=== PATIENT | male | born 1940 | race Caucasian/White ===

== ENCOUNTER 2019-01-26 11:30 | Inpatient (IN) ==
--- NOTE | 2019-01-26 12:45 | CT Scan Report ---
ABDOMEN AND PELVIS CT WITHOUT CONTRAST CT DOSE: 1033.77 mGycm HISTORY: Lower abdominal pain and cramping. anuria TECHNIQUE: Multiaxial CT images of the abdomen and pelvis were performed without contrast. A dose lo wering technique was utilized adhering to the principles of ALARA. COMPARISON STUDY: None. FINDINGS: The lung bases are clear. No pneumoperitoneum. No pneumatosis. No suspicious lytic or blast ic osseous lesions. Small hiatus hernia. Cholecystectomy. Hepatic steatosis. The unenhanced spleen, a drenal glands, and pancreas are unremarkable. No renal or ureteral stones. No hydronephrosis. No retr operitoneal lymphadenopathy. A 1.6 cm exophytic hypodense lesion within the lower pole of the left ki dney. This is technically indeterminate on this noncontrast study but favors a cyst. Prior prostatect jose. Multiple surgical clips at the resection site. This results in metallic artifact in near nondiag nostic evaluation of the bladder. There is a suprapubic catheter decompressing the bladder. Small lef t inguinal hernia containing a short segment of the proximal sigmoid colon. Focal bowel wall thickeni ng within the mid sigmoid colon with mild pericolonic fat stranding. This is consistent with an acute diverticulitis. No perforation or abscess identified at this time. No evidence for bowel obstruction . IMPRESSION: 1. Acute sigmoid diverticulitis. No perforation or abscess identified. 2. No bowel obstruction. 3. Small left inguinal hernia containing a short segment of the proximal sigmoid colon. 4. The bladder is not well visualized due to the metallic artifact from the prostatectomy clips. In a ddition, the bladder is decompressed by a suprapubic catheter. 5. Additional findings as described above. Electronically signed by: Garo Vale M.D. 01/26/2019 12:44 PM
[2019-01-26 12:59] LABS: Basophils # (auto) 0.01 K/uL (0-0.2); Basophils % (auto) 0.1 %; Eosinophils # (auto) 0.27 K/uL (0-0.5); Eosinophils % (auto) 3.1 %; Hematocrit (blood only) 36.7 % (42-52); Hemoglobin 12.4 g/dL (14.0-18.0); Immature Granulocytes # (auto) 0.05 K/uL (0.00-0.02); Immature Granulocytes % (auto) 0.6 %; Lymphocytes # (auto) 1.34 K/uL (1.2-3.4); Lymphocytes % (auto) 15.3 %; Mean Corpuscular Hemoglobin 26.6 pg (25-34); Mean Corpuscular Hgb Conc 33.8 g/dL (32-36); Mean Corpuscular Volume 78.6 fL (80-100); Mean Platelet Volume 9.5 fL (7.4-10.4); Monocytes # (auto) 0.62 K/uL (0.11-0.59); Monocytes % (auto) 7.1 %; Neutrophils # (auto) 6.45 K/uL (1.4-6.5); Neutrophils % (auto) 73.8 %; Platelet Count 205 K/uL (130-400); RDW Coefficient of Variation 15.5 % (11.5-14.5); RDW Standard Deviation 44.6 fL (36.4-46.3); Red Blood Count 4.67 M/uL (4.7-6.1); White Blood Count 8.74 K/uL (4.8-10.8)
[2019-01-26 13:10] LABS: Appearance Urine Clear (Clear); Bacteria Urine Automated 1+ (Negative); Bilirubin Urine Negative (Negative); Blood Urine Trace (Negative); Cast Urine Automated 0 /lpf (0-5); Color Urine Yellow; Epithelial Cell Urine Auto 20-30 /lpf (0-5); Glucose Urine UA Negative (Negative); Ketones Urine Negative (Negative); Leukocyte Esterase Urine 1+ (Negative); Nitrite Urine Negative (Negative); Protein Urine Negative (Negative); RBC Urine Automated 0-4 /hpf (0-4); Specific Gravity Urine 1.008 (1.000-1.030); Urobilinogen Urine Negative (Negative); pH Urine 6.5 (4.5-7.5)
[2019-01-26 13:17] LABS: BUN Creatinine Ratio 22.1 (10-20); Calcium 9.3 mg/dl (8.5-10.1); Est GFR (African American) 46.4; Est GFR (Non-African American) 40.1; Magnesium 1.8 mg/dl (1.8-2.4); Potassium 4.4 mmol/L (3.5-5.1)
[2019-01-26 13:27] LABS: Albumin Globulin Ratio 1.2 (0.9-2); Bilirubin,Total 0.5 mg/dl (0.2-1); Globulin 3.3 gm/dl (2.5-4.0); Thyroid Stimulating Hormone 1.23 uIu/ml (0.300-4.500); Total Protein 7.3 gm/dl (6.4-8.2)
[2019-01-26] MEDS ORDERED: ERTAPENEM SODIUM 1,000 MG in SODIUM CHLORIDE 0.9% 50 ML IV ONE (15:30)
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
[2019-01-26] MEDS ORDERED: SODIUM CHLORIDE 0.9% 1000ML 1,000 ML IV SCH (19:19)
[2019-01-26] MEDS ORDERED: ZOLPIDEM TARTRATE 5 MG TAB PO PRN (19:19)
[2019-01-26] MEDS ORDERED: ALUMINUM/MAGNESIUM SUSP 30 ML UDC PO PRN (19:19)
[2019-01-26] MEDS ORDERED: ONDANSETRON INJ 2 MG/ML 2 ML VIAL IV PRN (19:19)
[2019-01-26] MEDS ORDERED: MAGNESIUM HYDROXIDE SUSP 30 ML UDC PO PRN (19:19)
[2019-01-26] MEDS ORDERED: INSULIN LISPRO SLIDING SCALE SQ SCH (19:19)
[2019-01-26] MEDS ORDERED: POLYETHYLENE (MIRALAX) 17 GM PACK PO PRN (19:19)
[2019-01-26] MEDS ORDERED: ACETAMINOPHEN 325 MG TAB PO PRN (19:19)
[2019-01-26] MEDS ORDERED: PHARMACY GLYCEMIC MGMT CONSULT PRN (20:40)
[2019-01-26] MEDS ORDERED: DEXTROSE 50% 50 ML SYRINGE IV PRN (20:45)
[2019-01-26] MEDS ORDERED: GLUCAGON FOR INJ 1 MG VIAL IM PRN (20:45)
[2019-01-26] MEDS ORDERED: GLUCOSE 10 TABS/TUBE PO PRN (20:45)
[2019-01-26] MEDS ORDERED: CARBOHYDRATES FOR HYPOGLYCEMIA PO PRN (20:45)
[2019-01-26] MEDS ORDERED: GLUCOSE 40% GEL 15 GM TUBE PO PRN (20:45)
[2019-01-26] MEDS: HEPARIN SOD 5,000 UNIT/0.5 ML VIAL SQ SCH (21:30)
[2019-01-26] MEDS: PANTOprazole 40 MG TAB PO SCH (21:31)
[2019-01-26] MEDS: HYDROCODONE/ACETAMINOPHEN 7.5/325MG TAB PO PRN (21:42)
[2019-01-26] MEDS: INSULIN ASPART 100 UNITS/ML 3 ML PEN SC SCH (21:46)
[2019-01-27 06:45] LABS: Hematocrit (blood only) 36.1 % (42-52); Hemoglobin 11.8 g/dL (14.0-18.0); Mean Corpuscular Hemoglobin 25.6 pg (25-34); Mean Corpuscular Hgb Conc 32.7 g/dL (32-36); Mean Corpuscular Volume 78.3 fL (80-100); Platelet Count 178 K/uL (130-400); RDW Coefficient of Variation 15.3 % (11.5-14.5); RDW Standard Deviation 43.9 fL (36.4-46.3); Red Blood Count 4.61 M/uL (4.7-6.1); White Blood Count 5.52 K/uL (4.8-10.8)
[2019-01-27 06:46] LABS: Basophils # (auto) 0.02 K/uL (0-0.2); Basophils % (auto) 0.4 %; Eosinophils # (auto) 0.41 K/uL (0-0.5); Eosinophils % (auto) 7.4 %; Immature Granulocytes # (auto) 0.05 K/uL (0.00-0.02); Immature Granulocytes % (auto) 0.9 %; Lymphocytes # (auto) 1.14 K/uL (1.2-3.4); Lymphocytes % (auto) 20.7 %; Mean Platelet Volume 9.3 fL (7.4-10.4); Monocytes % (auto) 10.9 %; Neutrophils % (auto) 59.7 %
[2019-01-27 07:18] LABS: Albumin Level 3.4 gm/dl (3.4-5.0); BUN Creatinine Ratio 21.2 (10-20); Calcium 8.9 mg/dl (8.5-10.1); Creatinine Clr Calc Pharmacy 50.1 ml/min; Est GFR (Non-African American) 48.3; Potassium 3.9 mmol/L (3.5-5.1)
[2019-01-27 07:20] LABS: Bilirubin,Total 0.4 mg/dl (0.2-1); Globulin 3.4 gm/dl (2.5-4.0); Total Protein 6.8 gm/dl (6.4-8.2)
[2019-01-27 08:07] LABS: Estimated Average Glucose 160 mg/dl; Hemoglobin A1C 7.2 % (4.5-5.6)
[2019-01-27] MEDS: HEPARIN SOD 5,000 UNIT/0.5 ML VIAL SQ SCH ×2 (08:38→20:51)
[2019-01-27] MEDS: PANTOprazole 40 MG TAB PO SCH ×2 (08:38→20:51)
[2019-01-27] MEDS: INSULIN ASPART 100 UNITS/ML 3 ML PEN SC SCH ×4 (08:39→20:52)
[2019-01-27] MEDS: INSULIN GLARGINE SOLOSTAR 100 UNITS/ML 3 ML PEN SQ SCH (08:40)
[2019-01-27] MEDS: lisinopriL 20 MG TAB PO SCH (08:41)
[2019-01-27] MEDS: CHOLECALCIFEROL 1,000 UNITS TAB PO SCH (08:41)
[2019-01-27] MEDS: ATENOLOL 50 MG TABLET PO SCH (08:41)
[2019-01-27] MEDS: CYANOCOBALAMIN 500 MCG TABLET (VITAMIN B-12) PO SCH (08:41)
[2019-01-27] MEDS: AMLODIPINE BESYLATE 5 MG TAB PO SCH (08:41)
[2019-01-27] MEDS: hydroCHLOROthiazide 25 MG TAB PO SCH (08:42)
[2019-01-27] MEDS: DOCUSATE SODIUM 100 MG CAP PO SCH (08:42)
[2019-01-27] MEDS: HYDROCODONE/ACETAMINOPHEN 7.5/325MG TAB PO PRN ×2 (08:53→16:38)
[2019-01-27] MEDS ORDERED: INSULIN GLARGINE SOLOSTAR 100 UNITS/ML 3 ML PEN SQ SCH (09:00)
[2019-01-27] MEDS ORDERED: OMEGA-3 (PURIFIED FISH OIL) 1 GM CAP PO SCH (09:00)
--- NOTE | 2019-01-27 11:39 | Urology Progress Note ---
Date of Service January 27, 2019 Assessment & Plan (1) UTI (urinary tract infection): 78 YO male with indwelling SP tube, complex history, CAP. SP tube functioning appropriately. CT without acute findings. Remains on empiric antibiotics for acute diverticulitis/UTI. UOP improved with IVF. Continue antibiotics per primary team. Please contact our service if we can further assist during hospitalization. Subjective 78 YO male with indwelling SP tube, complex history, CAP. Patient was evaluated in our outpatient clinic yesterday and advised to report to ER for evaluation after complaints of low urine output x 2-3 days. A cystos copy was completed by Dr. Conway, confirming adequate position of SP tube. CT scan is reviewed and without acute findings +acute sigmoid diverticulitis. UOP has greatly improved with IVF. Remains on empiric antibiotics for diverticulitis and suspected UTI. Patient feeling well this morning. SP tube is not painful or bothersome. No fevers/chills. Intermittent nausea. Review of Systems Review of Systems: Per HPI. Physical Exam Physical Exam: NAD. Resp effort normal. No JVD. Abd nondistended. : SP tube in place, patent, draining clear yellow urine. A&Ox3, appropiate affect. Results & Data Vital Signs (Past 12 Hours) Vital Signs Temp Pulse Pulse Resp BP Pulse Ox 01/27/19 10:50 57 L 20 124/67 96 01/27/19 06:56 36.6 C 60 16 150/74 H 99 01/27/19 03:59 36.8 C 57 L 16 128/66 95 PG Care Time/CCT Total # of Minutes Spent Total Time Spent with Patient: Total time spent is greater than 50% in coordination of care (as documented) at patient's floor/unit and/or counseling patient:
--- NOTE | 2019-01-27 12:32 | Hospitalist Progress Note ---
Date of Service January 27, 2019 Assessment & Plan (1) Acute diverticulitis: CT a/p on 01/26 showed acute sigmoid diverticulitis with no perforation or abscess identified. - Continue ertapenem - Advance diet (2) UTI (urinary tract infection): Initially thought to have a UTI; however, the culture is polymicrobial and this is likely a contaminant or colonization. - No treatment (3) Diabetes mellitus: A1c was 7.2% this admission. - Glycemic control per pharmacy - Sugars under control today. (4) Malignant neoplasm of prostate: Patient is past radical prostatectomy and salvage XRT in 2010 status post Lupron July 1999 1215, status post RRP 2007. - Seen by urology on 01/27; no inpatient needs - Suprapubic Marinelli is draining well. (5) Hypertension: BP stable today. - Continue home meds (6) DVT prophylaxis: Heparin 5000 units Q12h Subjective Feeling fairly well today overall. No stomach pain. No other concerns. No fevers or chills overnight. Review of Systems Review of Systems: All systems reviewed & are unremarkable except as noted in HPI & below Physical Exam Constitutional: WD/WN, vitals as above Eyes: EOM intact bilaterally; no conjunctival abnormality ENMT: external ear and nose normal, oropharynx normal Neck: trachea midline, no thyromegaly normal visual inspection Respiratory: normal respiratory effort, lungs clear to auscultation no respiratory distress Cardiovascular: RRR, no murmur, no edema Gastrointestinal (Abdomen): Inspection/Auscultation: abdomen normal to inspection; abdomen not distended Musculoskeletal: no cyanosis or clubbing, extremities motor strength 5/5 Skin: no rashes, warm and dry Neurologic: moves all extremities and awake Psychiatric: Orientation: alert, oriented to person and cooperative Results & Data Vital Signs (Past 12 Hours) Vital Signs Temp Pulse Pulse Resp BP Pulse Ox 01/27/19 10:50 57 L 20 124/67 96 01/27/19 06:56 36.6 C 60 16 150/74 H 99 01/27/19 03:59 36.8 C 57 L 16 128/66 95 PG Care Time/CCT Total # of Minutes Spent Total Time Spent with Patient: Total time spent is greater than 50% in coordination of care (as documented) at patient's floor/unit and/or counseling patient:
--- NOTE | 2019-01-27 14:08 | Pharmacy Report ---
Glycemic Control Consultation - Date of Service January 27, 2019 - Scope Scope: Glycemic Pharmacist consulted by Dr Ramos on 01/26 for glycemic control and to write orders per [facility] inpatient glycemic control protocol - Objective Weight: 94.5 kg Accuchecks BSG (last 24hrs): 01/26/19 01/27/19 01/27/19 19:41 06:23 07:03 Glucose 115 H POC Glucose 96 132 H 01/27/19 10:54 Glucose POC Glucose 155 H Laboratory Data (last 24hrs): 01/27/19 06:23 Potassium 3.9 Carbon Dioxide 26 Anion Gap 9.0 Creatinine 1.38 Est Cr Clr Drug Dosing 50.1 HbA1c: Hemoglobin A1c 7.2 % (4.5-5.6) H 01/27/19 06:23 - Recent Pertinent Medications Outpatient Anti-diabetic Regimen: * Lantus 30 units qAM * Humalog 5-10 units qHS * A1c = 7.2 % 01/27/19 The patient is currently receiving: * Basal insulin: Lantus 30 units every 24 hours * Correctional Insulin: Novolog Correction per scale ACHS Goal Range: Low 110 mg/dL - High 140 mg/dL Correction Factor: 25 mg/dL/unit * Prandial insulin: Per carb ratio of 1 unit per 9 grams CHO consumed Risk Factors for Insulin Resistance: * Infection: Invanz for UTI * Diet: T2DM - Assessment & Plan Assessment & Plan: ASSESSMENT: * 78 y/o male admitted for UTI, with history of T2DM. Additional PMH includes prostate cancer, Morris esophagus, arthritis, HTN, hyperlipidemia and recurrent UTIs. * His outpatient regimen is heavily weighted on basal insulin so will split inpatient basal/bolus dosing to be more of a 50/50 split and prevent fasting hypoglycemia * BSGs have been well controlled thus far, ranging from 96-155 mg/dL PLAN FOR INPATIENT GLYCEMIC CONTROL: * Basal insulin - decrease to be closer to 50% of needs * Lantus 20 units SQ qAM * Bolus insulin - no change * NovoLog per scale ACHS or Q6hrs while NPO * Goal Range: Low 110 mg/dL - High 140 mg/dL * Correction Factor: 25 mg/dL/unit * Nutritional / Prandial insulin per carb ratio of 1 unit per 9 grams CHO consumed Discharge Recommendations: * A1c = 7.2% * Goal A1c < 8 % based on age and comorbidities: Less stringent A1C goals (such as less than 8%) may be appropriate for patients with a history of severe hypoglycemia, limited life expectancy, advanced microvascular or macrovascular complications, extensive comorbid conditions, or long-standing diabetes in whom the goal is difficult to achieve despite diabetes self-management education, appropriate glucose monitoring, and effective doses of multiple glucose-lowering agents including insulin. * No changes to outpatient regimen recommended, unless patient experiencing hypoglycemia at home Thank you.
[2019-01-27] MEDS ORDERED: ERTAPENEM SODIUM 1,000 MG in SODIUM CHLORIDE 0.9% 50 ML IV SCH (15:00)
[2019-01-28] MEDS: HYDROCODONE/ACETAMINOPHEN 7.5/325MG TAB PO PRN ×3 (00:32→20:35)
[2019-01-28] MEDS ORDERED: GABAPENTIN 300 MG CAP PO ONE (01:00)
[2019-01-28 07:30] LABS: Basophils # (auto) 0.02 K/uL (0-0.2); Basophils % (auto) 0.3 %; Eosinophils # (auto) 0.41 K/uL (0-0.5); Hematocrit (blood only) 37.9 % (42-52); Hemoglobin 12.6 g/dL (14.0-18.0); Immature Granulocytes # (auto) 0.03 K/uL (0.00-0.02); Immature Granulocytes % (auto) 0.4 %; Lymphocytes # (auto) 1.06 K/uL (1.2-3.4); Lymphocytes % (auto) 15.6 %; Mean Corpuscular Hgb Conc 33.2 g/dL (32-36); Mean Corpuscular Volume 78.3 fL (80-100); Mean Platelet Volume 9.8 fL (7.4-10.4); Monocytes # (auto) 0.64 K/uL (0.11-0.59); Monocytes % (auto) 9.4 %; Neutrophils # (auto) 4.65 K/uL (1.4-6.5); Neutrophils % (auto) 68.3 %; Platelet Count 208 K/uL (130-400); RDW Coefficient of Variation 15.2 % (11.5-14.5); RDW Standard Deviation 43.6 fL (36.4-46.3); Red Blood Count 4.84 M/uL (4.7-6.1); White Blood Count 6.81 K/uL (4.8-10.8)
[2019-01-28 07:59] LABS: BUN Creatinine Ratio 19.3 (10-20); Calcium 9.8 mg/dl (8.5-10.1); Creatinine Clr Calc Pharmacy 46.7 ml/min; Est GFR (African American) 51.4; Est GFR (Non-African American) 44.4; Potassium 4.1 mmol/L (3.5-5.1)
[2019-01-28] MEDS: lisinopriL 20 MG TAB PO SCH (08:12)
[2019-01-28] MEDS: hydroCHLOROthiazide 25 MG TAB PO SCH (08:12)
[2019-01-28] MEDS: AMLODIPINE BESYLATE 5 MG TAB PO SCH (08:13)
[2019-01-28] MEDS: DOCUSATE SODIUM 100 MG CAP PO SCH (08:14)
[2019-01-28] MEDS: CYANOCOBALAMIN 500 MCG TABLET (VITAMIN B-12) PO SCH (08:14)
[2019-01-28] MEDS: ATENOLOL 50 MG TABLET PO SCH (08:14)
[2019-01-28] MEDS: PANTOprazole 40 MG TAB PO SCH ×2 (08:14→20:17)
[2019-01-28] MEDS: CHOLECALCIFEROL 1,000 UNITS TAB PO SCH (08:14)
[2019-01-28] MEDS: INSULIN GLARGINE SOLOSTAR 100 UNITS/ML 3 ML PEN SQ SCH (08:15)
[2019-01-28] MEDS: INSULIN ASPART 100 UNITS/ML 3 ML PEN SC SCH ×4 (08:16→20:19)
[2019-01-28] MEDS: HEPARIN SOD 5,000 UNIT/0.5 ML VIAL SQ SCH ×2 (08:18→20:18)
--- NOTE | 2019-01-28 09:24 | Pharmacy Report ---
Pharmacy Glycemic Short Note 2 - Date of Service January 28, 2019 - Glycemic Short BSG Results (Last 24 hours): 01/27/19 01/27/19 01/27/19 10:54 16:34 20:20 Glucose POC Glucose 155 H 147 H 154 H 01/28/19 01/28/19 06:57 07:45 Glucose 160 H POC Glucose 154 H OUTPATIENT ANTIDIABETIC REGIMEN: * Lantus 30 units SQ AM * Humalog SSI ASSESSMENT: * 78 y/o male admitted for UTI, with history of T2DM. Additional PMH includes prostate cancer, Morris esophagus, arthritis, HTN, hyperlipidemia and recurrent UTIs. * His outpatient regimen is heavily weighted on basal insulin so will split inpatient basal/bolus dosing to be more of a 50/50 split and prevent fasting hypoglycemia * Decreased Basal insulin to 20 units Q24hrs and added a corresponding CF/CR * BSGs have been well controlled thus far, ranging from 132-154 mg/dL * No changes needed at this time PLAN FOR INPATIENT GLYCEMIC CONTROL: * Basal insulin * Lantus 20 units SQ AM * Bolus insulin * NovoLog per scale ACHS or Q6hrs while NPO * Goal Range: Low 110 mg/dL - High 140 mg/dL * Correction Factor: 25 mg/dL/unit * Nutritional / Prandial insulin per carb ratio of 1 unit per 9 grams CHO c onsumed Discharge Recommendations: * A1c = 7.2% * Goal A1c < 8 % based on age and comorbidities: Less stringent A1C goals (such as less than 8%) may be appropriate for patients with a history of severe hypoglycemia, limited life expectancy, advanced microvascular or macrovascular complications, extensive comorbid conditions, or long-standing diabetes in whom the goal is difficult to achieve despite diabetes self-management education, appropriate glucose monitoring, and effective doses of multiple glucose-lowering agents including insulin. * No changes to outpatient regimen recommended, unless patient experiencing hypoglycemia at home
--- NOTE | 2019-01-28 13:24 | Hospitalist Progress Note ---
Date of Service January 28, 2019 Assessment & Plan (1) Acute diverticulitis: CT a/p on 01/26 showed acute sigmoid diverticulitis with no perforation or abscess identified. - Initially on ertapenem -> Switched to clindamycin after consult with pharmacists. - As of 01/28, he had no abdominal pain, no fevers, chills. Feels fine. On normal diet. - Can follow up with surgery if needed. Daughter reports this is not his first episode of diverticulitis. (2) UTI (urinary tract infection): Initially thought to have a UTI; however, the culture is polymicrobial and this is likely a contaminant or colonization. - No treatment (3) Diabetes mellitus: A1c was 7.2% this admission. - Glycemic control per pharmacy - Sugars stable today. (4) Malignant neoplasm of prostate: Patient is past radical prostatectomy and salvage XRT in 2010 status post Lupron July 1999 1215, status post RRP 2007. - Seen by urology on 01/27; no inpatient needs - Suprapubic Marinelli is draining well. (5) Hypertension: BP stable today at ~150/80. - Continue home meds (6) DVT prophylaxis: Heparin 5000 units Q12h Subjective Feels pretty much fine. No major concerns. Review of Systems Review of Systems: All systems reviewed & are unremarkable except as noted in HPI & below Physical Exam Constitutional: WD/WN, vitals as above Eyes: EOM intact bilaterally; no conjunctival abnormality ENMT: external ear and nose normal, oropharynx normal Neck: trachea midline, no thyromegaly normal visual inspection Respiratory: normal respiratory effort, lungs clear to auscultation no respiratory distress Cardiovascular: RRR, no murmur, no edema Gastrointestinal (Abdomen): Inspection/Auscultation: abdomen normal to inspection; abdomen not distended Musculoskeletal: no cyanosis or clubbing, extremities motor strength 5/5 Skin: no rashes, warm and dry Neurologic: moves all extremities and awake Psychiatric: Orientation: alert, oriented to person and cooperative Results & Data Vital Signs (Past 12 Hours) Vital Signs Temp Pulse Resp BP Pulse Ox 01/28/19 08:24 36.6 C 56 L 24 148/80 H 88 L PG Care Time/CCT Total # of Minutes Spent Total Time Spent with Patient: Total time spent is greater than 50% in coordination of care (as documented) at patient's floor/unit and/or counseling patient:
[2019-01-28] MEDS: POLYETHYLENE (MIRALAX) 17 GM PACK PO SCH ×2 (13:54→20:15)
[2019-01-28] MEDS: GABAPENTIN 300 MG CAP PO SCH ×2 (13:54→20:17)
[2019-01-28] MEDS: CLINDAMYCIN HCL 150 MG CAP PO SCH ×2 (13:55→20:17)
[2019-01-29] MEDS: CLINDAMYCIN HCL 150 MG CAP PO SCH ×3 (01:41→11:59)
--- NOTE | 2019-01-29 08:59 | Pharmacy Report ---
Pharmacy Glycemic Short Note 2 - Date of Service January 29, 2019 - Glycemic Short BSG Results (Last 24 hours): 01/28/19 01/28/19 01/28/19 11:59 16:44 19:53 POC Glucose 136 H 115 H 156 H 01/29/19 07:41 POC Glucose 131 H OUTPATIENT ANTIDIABETIC REGIMEN: * Lantus 30 units SQ AM * Humalog SSI ASSESSMENT: * 78 y/o male admitted for UTI, with history of T2DM. Additional PMH includes prostate cancer, Morris esophagus, arthritis, HTN, hyperlipidemia and recurrent UTIs. * His outpatient regimen is heavily weighted on basal insulin, therefore, regimen adusted for inpatient use to more of an equal distribution basal/bolus dosing 50/50 split and prevent fasting hypoglycemia * Decreased Basal insulin to 20 units Q24hrs and added a corresponding CF/CR * BSGs have been well controlled thus far, ranging from 115-156 mg/dL * No changes needed at this time PLAN FOR INPATIENT GLYCEMIC CONTROL: * Basal insulin * Lantus 20 units SQ AM * Bolus insulin * NovoLog per scale ACHS or Q6hrs while NPO * Goal Range: Low 110 mg/dL - High 140 mg/dL * Correction Factor: 25 mg/dL/unit * Nutritional / Prandial insulin per carb ratio of 1 unit per 9 grams CHO consumed Discharge Recommendations: * A1c = 7.2% * Goal A1c < 8 % based on age and comorbidities: Less stringent A1C goals (such as less than 8%) may be appropriate for patients with a history of severe hypoglycemia, limited life expectancy, advanced microvascular or macrovascular complications, extensive comorbid conditions, or long-standing diabetes in whom the goal is difficult to achieve despite diabetes self-management education, appropriate glucose monitoring, and effective doses of multiple glucose-lowering agents including insulin. * No changes to outpatient regimen recommended, unless patient experiencing hypoglycemia at home
[2019-01-29] MEDS: AMLODIPINE BESYLATE 5 MG TAB PO SCH (09:01)
[2019-01-29] MEDS: GABAPENTIN 300 MG CAP PO SCH (09:02)
[2019-01-29] MEDS: lisinopriL 20 MG TAB PO SCH (09:03)
[2019-01-29] MEDS: HEPARIN SOD 5,000 UNIT/0.5 ML VIAL SQ SCH (09:03)
[2019-01-29] MEDS: ATENOLOL 50 MG TABLET PO SCH (09:04)
[2019-01-29] MEDS: CHOLECALCIFEROL 1,000 UNITS TAB PO SCH (09:04)
[2019-01-29] MEDS: hydroCHLOROthiazide 25 MG TAB PO SCH (09:05)
[2019-01-29] MEDS: CYANOCOBALAMIN 500 MCG TABLET (VITAMIN B-12) PO SCH (09:06)
[2019-01-29] MEDS: PANTOprazole 40 MG TAB PO SCH (09:06)
[2019-01-29] MEDS: INSULIN GLARGINE SOLOSTAR 100 UNITS/ML 3 ML PEN SQ SCH (09:08)
[2019-01-29] MEDS: INSULIN ASPART 100 UNITS/ML 3 ML PEN SC SCH (09:10)
[2019-01-29] MEDS: HYDROCODONE/ACETAMINOPHEN 7.5/325MG TAB PO PRN (09:17)
[2019-01-29] MEDS: DOCUSATE SODIUM 100 MG CAP PO SCH (09:19)
--- NOTE | 2019-01-29 10:50 | Discharge Summary ---
Date of Service January 29, 2019 Admission HPI Per Admitting Provider Patient is a 78 years old male with past medical history of of urinary retention, urinary incontinence, urethral stricture, malignant neoplasm of prostate, CKD stage III who was sent by his urologist to the emergency room with a concern that patient did not produce any urine overnight even though his suprapubic catheter was properly placed and there was no obstruction in the suprapubic catheter. After arrival to the emergency room patient catheter was working okay and nurse was able to get thousand 600 cc of urine. Labs are reviewed: WBC 8.74, hemoglobin 12.4, hematocrit 36.7, platelets 205, PT 11.1, INR 1.1, sodium 133, BUN 36, creatinine 1.61, GFR 40.1AST 11, ALT 16 TSH 1.230. Magnesium 1.8. Urine show mildly elevated leukocyte esterase and trace blood. There is some bacteria and viable cells are otherwise negative as well as nitrates. CT abdomen pelvis is significant for acute sigmoid diverticulitis. No perforation or abscess identified. No bowel obstruction. Small left inguinal hernia containing an short segment of a proximal sigmoid colon. The bladder is not well visualized due to the metallic artifact from the prostatectomy clips. In addition the bladder is decompressed by a suprapubic catheter. Decision was made to admit patient for urinary tract infection possible anuria and or urinary retention at PCU telemetry. Principal Diagnosis Diverticulitis Discharge Exam Constitutional WD/WN, vitals as above Eyes EOM intact bilaterally; no conjunctival abnormality ENMT external ear and nose normal, oropharynx normal Neck trachea midline, no thyromegaly normal visual inspection Respiratory normal respiratory effort, lungs clear to auscultation no respiratory distress Cardiovascular RRR, no murmur, no edema Gastrointestinal (Abdomen) Inspection/Auscultation: abdomen normal to inspection; abdomen not distended Musculoskeletal no cyanosis or clubbing, extremities motor strength 5/5 Skin no rashes, warm and dry Neurologic moves all extremities and awake Psychiatric Orientation: alert, oriented to person and cooperative Discharge Data Allergies Allergy/AdvReac Type Severity Reaction Status Date / Time ciprofloxacin [From Cipro] Allergy Intermediate hives Verified 01/26/19 12:29 itching rofecoxib Allergy Intermediate Verified 01/26/19 12:29 atorvastatin [From Lipitor] Allergy Verified 01/26/19 12:29 cephalexin [From Keflex] Allergy Verified 01/26/19 12:29 chlorophyllin [From Panafil] Allergy Verified 01/26/19 12:29 erythromycin base Allergy Verified 01/26/19 12:29 ezetimibe [From Zetia] Allergy Verified 01/26/19 12:29 fluconazole [From Diflucan] Allergy Verified 01/26/19 12:29 garlic Allergy Verified 01/26/19 12:29 glipizide Allergy Hives Verified 01/26/19 12:29 hydrocodone Allergy Verified 01/26/19 12:29 milk Allergy Verified 01/26/19 12:29 ofloxacin [From Floxin] Allergy Verified 01/26/19 12:29 orange Allergy Verified 01/26/19 12:29 oxycodone Allergy Verified 01/26/19 12:29 papain [From Panafil] Allergy Verified 01/26/19 12:29 peanut Allergy Verified 01/26/19 12:29 Penicillins Allergy Verified 01/26/19 12:29 pravastatin [From Pravachol] Allergy Verified 01/26/19 12:29 Quinolones Allergy Verified 01/26/19 12:29 soy Allergy Verified 01/26/19 12:29 sulfamethoxazole Allergy Verified 01/26/19 12:29 [From Bactrim] trimethoprim [From Bactrim] Allergy Verified 01/26/19 12:29 urea [From Panafil] Allergy Verified 01/26/19 12:29 acetaminophen AdvReac Unknown Unknown Verified 01/26/19 12:29 [From Darvocet-N] propoxyphene AdvReac Unknown Unknown Verified 01/26/19 12:29 [From Darvocet-N] LACTOSE INTOLERANT Allergy Unknown THROAT Uncoded 01/26/19 12:29 SWELLS PCN,EES,FLOXIN,LLIPITOR,VIOXX,PRAVACHOL,DIFLUCAN Allergy Unknown Unknown Uncoded 01/26/19 12:29 ATORVASTATIN (Generic Allergy Y Uncoded 01/26/19 12:29 Allergy) ERYTHROMYCIN (Generic Allergy Y Uncoded 01/26/19 12:29 Allergy) Floxin Allergy Unknown Uncoded 01/26/19 12:29 FLUCONAZOLE (Generic Allergy) Allergy Y Uncoded 01/26/19 12:29 Garlic Allergy Unknown Uncoded 01/26/19 12:29 Milk Allergy Unknown Uncoded 01/26/19 12:29 Penicillins Allergy Unknown Uncoded 01/26/19 12:29 PRAVASTATIN SOD (Generic Allergy Y Uncoded 01/26/19 12:29 Allergy) Consultations 01/26/19 15:39 ED Decision to Admit Stat 01/26/19 19:19 Consult Urology Routine Ordered Studies 01/26/19 12:05 CT abd pelvis wo con Stat Hospital Course (1) Acute diverticulitis: CT a/p on 01/26 showed acute sigmoid diverticulitis with no perforation or abscess identified. - Initially on ertapenem -> Switched to clindamycin after consult with pharmacists. - While I do not like using clindamycin due to risk of C. diff, he has so many allergies that it was hard to find any other oral regimen. I did prescribe a probiotic to help prevent this. He will follow up with his PCP in a few day to be sure diarrhea is not an issue. - Can follow up with surgery if needed. Daughter reports this is not his first episode of diverticulitis. (2) UTI (urinary tract infection): Initially thought to have a UTI; however, the culture is polymicrobial and this is likely a contaminant or colonization. - No treatment (3) Diabetes mellitus: A1c was 7.2% this admission. - Glycemic control per pharmacy - Return to home regimen on discharge. (4) Malignant neoplasm of prostate: Patient is past radical prostatectomy and salvage XRT in 2010 status post Lupron July [id number], status post RRP 2007. - Seen by urology on 01/27; no inpatient needs - Suprapubic Marinelli is draining well. Light yellow urine. (5) Hypertension: BP stable today at ~150/80. - Continue home meds (6) DVT prophylaxis: Heparin 5000 units Q12h Total Time Total Time Spent Total Time Spent (In Minutes): 35 Discharge Plan Discharge Items Patient Disposition: Home - Self-Care Reason For Visit: ACUTE URINARY RETENTION Discharge Diagnosis: Mild acute diverticulitis Activity: Resume your previous activity Non-emergency contact: Primary Care Provider Call non-emergency contact if: you have any medication questions, your symptoms worsen and your temperature is above 101 Follow-up/Referrals: Stephanie Pate CRNP [Primary Care Provider] - 02/02/19 10:20 am (Please, follow up with Stephanie CARRINGTON on February 02 at 10:20 am. *If you need to change this appointment, call her office at [phone].) Diet: Low Fiber Addtl Attending Provider Instructions: Eat a low fiber diet until you are done with antibiotics and have seen your doctors. Please take the probiotic with the antibiotic to help avoid diarrhea. Please call your PCP (Ms. Pate) if you have diarrhea with your antibiotic, especially if it continues after you have finished the antibiotic. Low-fiber foods to consider eating if you have symptoms of diverticulitis include: * White rice, white bread, or white pasta, but avoid gluten-containing foods if youre intolerant * Dry, low-fiber cereals * Processed fruits such as applesauce or canned peaches * Cooked animal proteins such as fish, poultry, or eggs * [place] oil or other oils * Yellow squash, zucchini, or pumpkin: peeled, seeds removed, and cooked * Cooked spinach, beets, carrots, or asparagus * Potatoes with no skin * Fruit and vegetable juices Pending Studies at Discharge: No Stand-Alone Forms: My [facility] Medications and DC Order Prescriptions: New clindamycin HCl 300 mg capsule 600 mg PO TID Qty: 26 RF: 0 Provad 30 billion cell capsule 1 cap PO DAILY Qty: 7 RF: 0 Continued cyanocobalamin (vitamin B-12) [Vitamin B-12] 1,000 mcg Tablet 1,000 mcg PO QAM RF: 0 cholecalciferol (vitamin D3) [Vitamin D3] 1,000 unit Capsule 1,000 unit PO QAM RF: 0 omega 0-wpn-fky-fish oil [Fish Oil] 1,000 mg (120 mg-180 mg) Capsule 1 cap PO QAM RF: 0 hydrocodone-acetaminophen 7.5-325 mg tablet 1 tab PO TID PRN (Reason: Pain) RF: 0 atenolol 100 mg Tablet 100 mg PO QAM RF: 0 lisinopril 20 mg Tablet 20 mg PO QAM RF: 0 amlodipine 2.5 mg Tablet 2.5 mg PO QAM RF: 0 hydrochlorothiazide 12.5 mg Capsule 12.5 mg PO QAM RF: 0 docusate sodium [Stool Softener] 100 mg Capsule 200 mg PO QAM RF: 0 Humalog U-100 Insulin 100 unit/mL Cartridge 5 - 10 sliding scale dose SUBCUT USEASDIRECTD RF: 0 solifenacin [Vesicare] 10 mg Tablet 10 mg PO QAM RF: 0 Basaglar KwikPen U-100 Insulin 100 unit/mL (3 mL) Insulin Pen 30 unit SUBCUT QAM RF: 0 omeprazole 20 mg Tablet,Delayed Release (Dr/Ec) 20 mg PO BID RF: 0 Movantik 12.5 mg Tablet 12.5 mg PO QAM RF: 0 Discharge Orders: Discharge Order (Routine); Ordered 01/29/19 Ordered By: Papa Chong Admission Data Admit Date/Time: 01/26/19 17:53 Attending Provider: Papa Chong Admit Provider: Callum Ramos Primary Care Provider: Stephanie Pate Other Providers: Papa Chong ; Hospice,Family ; Callum Ramos ; Germán Chong I.
[2019-01-29] MEDS ORDERED: Nursing to Pharmacy Communication ONE (11:33)
[2019-01-29] MEDS ORDERED: CLINDAMYCIN HCL 150 MG CAP PO SCH ×3 (11:45→21:00)
== END 2019-01-29 12:53 | disposition home health service (06) | DRG 690 ==
LOC: ED 11:30 → SUATTDRO 17:53 → 2E 17:53 → 2N 01-27 13:42

== ENCOUNTER 2019-08-10 13:50 | Inpatient (IN) ==
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
[2019-08-10] MEDS ORDERED: HYDROCODONE/ACETAMINOPHEN 7.5/325MG TAB PO PRN (16:18)
[2019-08-10] MEDS ORDERED: POLYETHYLENE (MIRALAX) 17 GM PACK PO PRN (16:37)
[2019-08-10] MEDS ORDERED: ONDANSETRON INJ 2 MG/ML 2 ML VIAL IV PRN (16:37)
[2019-08-10] MEDS ORDERED: GLUCOSE 10 TABS/TUBE PO PRN (17:15)
[2019-08-10] MEDS ORDERED: GLUCAGON FOR INJ 1 MG VIAL IM PRN (17:15)
[2019-08-10] MEDS ORDERED: CARBOHYDRATES FOR HYPOGLYCEMIA PO PRN (17:15)
[2019-08-10] MEDS ORDERED: DEXTROSE 50% 50 ML SYRINGE IV PRN (17:15)
[2019-08-10] MEDS ORDERED: INSULIN ASPART 100 UNITS/ML 3 ML PEN SC SCH (17:15)
[2019-08-10] MEDS ORDERED: GLUCOSE 40% GEL 15 GM TUBE PO PRN (17:15)
[2019-08-10] MEDS: SODIUM CHLORIDE 0.9% 1000ML 1,000 ML IV SCH (17:23)
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
[2019-08-10] MEDS: DEXAMETHASONE SOD PHOSPHATE 4 MG in SYRINGE 0 ML IV SCH ×2 (17:59→22:54)
[2019-08-10] MEDS ORDERED: ACETAMINOPHEN 1,000 MG/100 ML VIAL IV PRN (18:24)
[2019-08-10] MEDS ORDERED: Nursing to Pharmacy Communication ONE (19:23)
[2019-08-10] MEDS: PANTOprazole 40 MG TAB PO SCH (20:07)
[2019-08-10] MEDS: INSULIN ASPART 100 UNITS/ML 3 ML PEN SC SCH (23:33)
[2019-08-10] MEDS: VESICARE: ORDER AWAITING ACTION SCH (23:35)
[2019-08-11] MEDS: SODIUM CHLORIDE 0.9% 1000ML 1,000 ML IV SCH (03:27)
[2019-08-11] MEDS: INSULIN ASPART 100 UNITS/ML 3 ML PEN SC SCH ×4 (06:05→20:42)
[2019-08-11] MEDS: DEXAMETHASONE SOD PHOSPHATE 4 MG in SYRINGE 0 ML IV SCH ×4 (06:06→23:38)
[2019-08-11 07:05] LABS: Hematocrit (blood only) 37.4 % (42-52); Hemoglobin 12.3 g/dL (14.0-18.0); Mean Corpuscular Hemoglobin 26.9 pg (25-34); Mean Corpuscular Hgb Conc 32.9 g/dL (32-36); Mean Corpuscular Volume 81.8 fL (80-100); Mean Platelet Volume 9.5 fL (7.4-10.4); Platelet Count 200 K/uL (130-400); RDW Standard Deviation 41.9 fL (36.4-46.3); Red Blood Count 4.57 M/uL (4.7-6.1); White Blood Count 11.22 K/uL (4.8-10.8)
[2019-08-11 07:34] LABS: Calcium 9.3 mg/dl (8.5-10.1); Est GFR (African American) 54.6; Est GFR (Non-African American) 47.1; Potassium 4.1 mmol/L (3.5-5.1)
[2019-08-11] MEDS: VESICARE: ORDER AWAITING ACTION SCH ×3 (08:48→23:38)
[2019-08-11] MEDS: DOCUSATE SODIUM 100 MG CAP PO SCH (08:54)
[2019-08-11] MEDS: AMLODIPINE BESYLATE 5 MG TAB PO SCH (08:55)
[2019-08-11] MEDS: ATENOLOL 50 MG TABLET PO SCH (08:55)
[2019-08-11] MEDS: PANTOprazole 40 MG TAB PO SCH ×2 (08:57→20:41)
[2019-08-11] MEDS: CHOLECALCIFEROL 1,000 UNITS 25 MCG TAB PO SCH (08:58)
[2019-08-11] MEDS: CYANOCOBALAMIN 500 MCG TABLET (VITAMIN B-12) PO SCH (08:58)
[2019-08-11] MEDS ORDERED: INSULIN GLARGINE SOLOSTAR 100 UNITS/ML 3 ML PEN SQ SCH ×2 (09:00→21:00)
[2019-08-11] MEDS ORDERED: PHARMACY GLYCEMIC MGMT CONSULT PRN (09:25)
[2019-08-11] MEDS ORDERED: Nursing to Pharmacy Communication ONE (09:44)
--- NOTE | 2019-08-11 10:49 | Hospitalist Progress Note ---
Date of Service August 11, 2019 Assessment & Plan (1) Throat swelling: Retropharyngeal edema secondary to suspected milk-protein allergy and consumption. No infection/abscess suspected. No antibiotics started here. Appreciate ENT review - plan is to continue steroids. Will switch to PO decadron tomorrow as long he continues to do well with his diet. 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 (3) Hypertension: Hold lisinopril given patient concern for angioedema although much more likely caused by him eating dairy as from history described this is a recurring theme. Continue amlodipine and atenolol and monitor for increased BP off lisinopril. HCTZ also on hold given stability of BP off this. (4) Diabetes mellitus: HbA1C pending Appreciate pharmacy glycemic control Basal insulin: Lantus 30 units SQ this morning, plus 15 units with lunch, Lantus this evening per scale (see MAR for details) Bolus insulin: NovoLog per scale ACHS or Q6hrs while NPO, goal 120-160, correction 20, carb ratio 1:7 Admission and Anticipated Discharge Date Admission Date: August 10, 2019 Plan for discharge tomorrow after PT/OT assessments, increase diet to soft and switch to PO steroids. Given initial concern for infection, patient age and comprehension of medical issues and lives alone I do not feel he should be discharged today. Anticipated date of discharge: 08/12/19 Subjective Patient reports no longer having sensation of foreign sensation in throat. No pain. Managed to eat clear liquid diet this morning without issue. He notes he lives alone. He reports allergy to milk but sometimes has it with ice and it goes down ok. Before this episode he notes eating rice pudding and cheese on pizza. He does not have an epipen at home. He thinks he was previously seen by an floor grinder but was just told the only allergy they can test is for penicillin. He also reports soy and peanut allergies but does not think he had these prior to the episode. He keeps concentrating on the lisinopril as the cause of this despite his food choices and eating dairy despite known allergy. He does recognize the role dairy may have played though and willing to go dairy free at least until he is seen by an floor grinder. The patient says he otherwise feels well. Uses artificial leg on right side but ambulates otherwise without assistance but also notes he hasn't really been up in 2 days. Patient was seen with practice representative and discussed at bedside. Patient will be provide with information sheet on foods to avoid. Review of Systems Review of Systems: All systems reviewed & are unremarkable except as noted in HPI & below Physical Exam Constitutional: WD/WN, vitals as above Eyes: + anicteric sclerae; normal pupil size ENMT: external ear and nose normal, oropharynx normal Mouth: no lip abnormality, no oropharynx abnormality and no tongue abnormality Neck: trachea midline, no thyromegaly Respiratory: normal respiratory effort, lungs clear to auscultation no stridor Cardiovascular: RRR, no murmur, no edema Musculoskeletal: no cyanosis or clubbing, extremities motor strength 5/5 Skin: no rashes, warm and dry Neurologic: moves all extremities and awake; not confused Psychiatric: A+Ox3, euthymic affect Results & Data Results & Data ([facility]) Vital Signs (Past 12 Hours) Vital Signs Temp Pulse Pulse Resp BP Pulse Ox 08/11/19 06:52 36.6 C 66 16 142/72 H 97 08/11/19 03:37 36.6 C 63 16 136/70 98 08/10/19 23:24 36.4 C L 64 16 128/71 94 08/10/19 22:58 65 PG Care Time/CCT Total # of Minutes Spent Total Time Spent with Patient: Total time spent is greater than 50% in coordination of care (as documented) at patient's floor/unit and/or counseling patient: Coding Level of Care Code 48885 Subseq Hosp Care Lvl 2 Diagnoses Throat swelling R22.1 Milk protein allergy Z91.011 Hypertension I10 Diabetes mellitus E11.9
[2019-08-11] MEDS ORDERED: INSULIN GLARGINE SOLOSTAR 100 UNITS/ML 3 ML PEN SQ ONE (12:15)
--- NOTE | 2019-08-11 15:28 | Pharmacy Report ---
Pharmacy Glycemic Short Note 2 - Date of Service August 11, 2019 - Glycemic Short BSG Results (Last 24 hours): 08/10/19 08/10/19 08/11/19 15:35 23:26 06:04 Glucose POC Glucose 187 H 256 H 227 H 08/11/19 08/11/19 06:44 11:26 Glucose 240 H POC Glucose 253 H OUTPATIENT ANTIDIABETIC REGIMEN: * Lantus 30 units SQ qAM * Humalog 5-10 units SQ qHS * HbA1c: 7.2% (01/27/19) -- updated A1c pending with AM labs ASSESSMENT: * Mr Jenkins is an 79yo diabetic male admitted with angioedema. * Patient is receiving IV dexamethasone q6h, which is expected to contribute to significant steroid-induced hyperglycemia. * Insulin regimen adjusted to provide more aggressive coverage during steroid therapy. Expect that insulin needs will decrease when steroids are weaned. * He is currently ordered a clear liquid diet. PLAN FOR INPATIENT GLYCEMIC CONTROL: * Hold outpatient oral diabetes medications * Basal insulin * Lantus 30 units SQ this morning, plus 15 units with lunch * Lantus this evening per scale (see MAR for details) * Bolus insulin * NovoLog per scale ACHS or Q6hrs while NPO * Goal Range: Low 120 mg/dL - High 160 mg/dL * Correction Factor: 20 mg/dL/unit * Nutritional / Prandial insulin per carb ratio of 1 unit per 7 grams CHO consumed PLAN FOR DISCHARGE: * pending updated A1c and insulin needs during hospitalization
[2019-08-12] MEDS: DEXAMETHASONE SOD PHOSPHATE 4 MG in SYRINGE 0 ML IV SCH (06:00)
[2019-08-12 06:35] LABS: BUN Creatinine Ratio 28.1 (10-20); Calcium 9.1 mg/dl (8.5-10.1); Creatinine Clr Calc Pharmacy 46.7 ml/min; Est GFR (African American) 54.1; Est GFR (Non-African American) 46.7
[2019-08-12 06:45] LABS: Estimated Average Glucose 171 mg/dl; Hemoglobin A1C 7.6 % (4.5-5.6)
[2019-08-12] MEDS ORDERED: predniSONE 20 MG TAB PO SCH (08:00)
[2019-08-12] MEDS: CYANOCOBALAMIN 500 MCG TABLET (VITAMIN B-12) PO SCH (08:02)
[2019-08-12] MEDS: AMLODIPINE BESYLATE 5 MG TAB PO SCH (08:02)
[2019-08-12] MEDS: CHOLECALCIFEROL 1,000 UNITS 25 MCG TAB PO SCH (08:03)
[2019-08-12] MEDS: PANTOprazole 40 MG TAB PO SCH (08:03)
[2019-08-12] MEDS: ATENOLOL 50 MG TABLET PO SCH (08:03)
[2019-08-12] MEDS: VESICARE: ORDER AWAITING ACTION SCH (08:03)
[2019-08-12] MEDS: DOCUSATE SODIUM 100 MG CAP PO SCH (08:03)
[2019-08-12] MEDS: INSULIN ASPART 100 UNITS/ML 3 ML PEN SC SCH ×2 (08:06→12:08)
--- NOTE | 2019-08-12 08:56 | Pharmacy Report ---
Pharmacy Glycemic Short Note 2 - Date of Service August 12, 2019 - Glycemic Short BSG Results (Last 24 hours): 08/11/19 08/11/19 08/11/19 11:26 16:21 20:03 Glucose POC Glucose 253 H 160 H 208 H 08/11/19 08/12/19 08/12/19 23:20 05:42 07:41 Glucose 186 H POC Glucose 156 H 206 H OUTPATIENT ANTIDIABETIC REGIMEN: * Lantus 30 units SQ qAM * Humalog 5-10 units SQ qHS * HbA1c: 7.2% (01/27/19) * HbA1c: 7.6% on 08/12/19 ASSESSMENT: * Mr Jenkins is an 79yo diabetic male admitted with angioedema. * Patient is initially ordered IV dexamethasone q6h, which is expected to contribute to significant steroid-induced hyperglycemia. However, steroids tapeed to Dexamethasone 4mg PO daily then to further taper. Hyperglycemia should resolve with step down in steroid dosing. * Insulin regimen initially adjusted to provide more aggressive coverage during steroid therapy. Will decrease now since steroids are weaned. PLAN FOR INPATIENT GLYCEMIC CONTROL: * Hold outpatient oral diabetes medications * Basal insulin * Lantus 30 units SQ this morning (outpatient dosing) * D/C Lantus in PM * Bolus insulin: no change - will loosen based on post-prandial BSGS * NovoLog per scale ACHS or Q6hrs while NPO * Goal Range: Low 120 mg/dL - High 160 mg/dL * Correction Factor: 20 mg/dL/unit * Nutritional / Prandial insulin per carb ratio of 1 unit per 7 grams CHO consumed PLAN FOR DISCHARGE: * A1c is in goal range for patient based on age/co-morbidities. No changes needed to outpatient regimen unless patient is experiencing hypoglycemia.
[2019-08-12] MEDS ORDERED: INSULIN GLARGINE SOLOSTAR 100 UNITS/ML 3 ML PEN SQ SCH (09:00)
[2019-08-12] MEDS ORDERED: dexAMETHasone 1 MG TAB PO SCH (09:00)
--- NOTE | 2019-08-12 13:56 | Discharge Summary ---
Date of Service August 12, 2019 Admission HPI Per Admitting Provider This is a 79 year old male with a history of type 2 diabetes, dyslipidemia, traumatic RBKA, hx prostate cancer with chronic indwelling catheter and anemia who presented to [facility] with feeling of swollen throat. Patient states he was eating breakfast this morning and began to feel crampy so he went to the bathroom. After passing stool he began to wipe up and had weird feeling in his throat. CT done at [place] showed likely retropharyngeal cellulitis with questionable early abscess formation and possibility of airway compromise. Patient was given decadron and vancomycin and transferred to [facility]. Patient states that over the last couple of weeks he has had increased difficulty swallowing. He denies any new meds or changes. Principal Diagnosis Retroperitoneal edema Milk-protein allergy Discharge Exam Constitutional WD/WN, vitals as above ENMT external ear and nose normal, oropharynx normal Mouth: no lip abnormality, no oropharynx abnormality and no tongue abnormality Neck trachea midline, no thyromegaly Respiratory normal respiratory effort, lungs clear to auscultation no stridor Cardiovascular RRR, no murmur, no edema Gastrointestinal (Abdomen) normal bowel sounds, soft, nontender, no hepatosplenomegaly Musculoskeletal no cyanosis or clubbing, extremities motor strength 5/5 Skin no rashes, warm and dry Neurologic moves all extremities and awake; not confused Psychiatric A+Ox3, euthymic affect Discharge Data Allergies Allergy/AdvReac Type Severity Reaction Status Date / Time ciprofloxacin [From Cipro] Allergy Intermediate hives Verified 06/27/19 14:25 itching rofecoxib Allergy Intermediate Unknown Verified 08/11/19 09:37 atorvastatin [From Lipitor] Allergy Unknown Verified 08/11/19 09:37 cephalexin [From Keflex] Allergy Unknown Verified 08/11/19 09:37 chlorophyllin [From Panafil] Allergy Unknown Verified 08/11/19 09:37 erythromycin base Allergy Unknown Verified 08/11/19 09:37 ezetimibe [From Zetia] Allergy Unknown Verified 08/11/19 09:37 fluconazole [From Diflucan] Allergy Unknown Verified 08/11/19 09:37 garlic Allergy Unknown Verified 08/11/19 09:37 glipizide Allergy Hives Verified 06/27/19 14:25 hydrocodone Allergy Unknown Verified 08/11/19 09:37 milk Allergy Unknown Verified 08/11/19 09:37 ofloxacin [From Floxin] Allergy Unknown Verified 08/11/19 09:37 orange Allergy Unknown Verified 08/11/19 09:37 oxycodone Allergy Unknown Verified 08/11/19 09:37 papain [From Panafil] Allergy Unknown Verified 08/11/19 09:37 peanut Allergy Unknown Verified 08/11/19 09:37 Penicillins Allergy Unknown Verified 08/11/19 09:37 pravastatin [From Pravachol] Allergy Unknown Verified 08/11/19 09:37 Quinolones Allergy Unknown Verified 08/11/19 09:37 soy Allergy Unknown Verified 08/11/19 09:37 sulfamethoxazole Allergy Unknown Verified 08/11/19 09:37 [From Bactrim] trimethoprim [From Bactrim] Allergy Unknown Verified 08/11/19 09:37 urea [From Panafil] Allergy Unknown Verified 08/11/19 09:37 acetaminophen AdvReac Unknown Unknown Verified 06/27/19 14:25 [From Darvocet-N] propoxyphene AdvReac Unknown Unknown Verified 06/27/19 14:25 [From Darvocet-N] Consultations 08/10/19 16:42 Consult Otolaryngology (Head and Neck) Routine Hospital Course (1) Throat swelling: João Moore is an 79 year old male admitted to [facility] from August 09 to 2019 due to foreign object sensation and retropharyngeal edema noted on CT scan at an outside hospital. Evaluation by ENT [Dr Bullock] revealed an open glottis. Suspected secondary to milk-protein allergy but given lisinopril use possibly increasing edema this was also held. He responded well to steroid treatment and is being discharged with a tapering dose of Decadron. Epipen also prescribed. He was recommended to avoid all dairy products to reduce the risk of this occurring again. He should follow up with firmware engineer appointment as below. (2) Milk protein allergy: (3) Hypertension: (4) Diabetes mellitus: Total Time Total Time Spent Total Time Spent (In Minutes): 40 Total Time Includes: Examination of the Patient, Discharge Planning and Medication Reconciliation Discharge Plan Discharge Items Patient Disposition: Home - Home Health Services Reason For Visit: Throat swelling, foreign object sensation Discharge Diagnosis: Retroperitoneal edema Milk-protein allergy Condition on Discharge: Good Activity: Resume your previous activity Non-emergency contact: Primary Care Provider Call non-emergency contact if: you have any medication questions and your symptoms worsen Follow-up/Referrals: Lexii Siddiqui MD [Physician] - 10/25/19 10:45 am (Please, follow up at [facility] Office with Dr. Siddiqui on WednesdayOctober 24 at 11:00 am (arrive 10:45 am). *The office is located in [address] of [facility], next to this hospital. If you need to change this appointment, call the office at [phone].) Stephanie Pate CRNP [Outside Practitioners] - Dietitian Info: Dairy-free, Peanut-free, Soy-free diet Diet: Other - See Diet Comment Diet Texture: Dental soft (bite-sized) Addtl Attending Provider Instructions: You were admitted to [facility] from August 09 to 2019 due to foreign object sensation and retropharyngeal edema noted on CT scan at an outside hospital. Evaluation by ear, nose, throat surgeon Dr Bullock revealed open glottis. This is likely due to a milk-protein allergy but given lisinopril use in addition possibly increasing edema this was also held. You responded well to steroid treatment for this and you will be treated with a tapering dose of Decadron as prescribed below. You were also prescribed an epipen to be used if you have ever have an allergic reaction which is affecting your breathing (anaphylaxis). If you use an Epipen you should go to the ER immediately or call an ambulance for further treatment as the effects can wear off. You have been set up with an firmware engineer for further management of you suspected milk-protein allergy. Please avoid all dairy products to reduce the risk of this occurring again. Kind regards, Dr Anatoly Tristan Pending Studies at Discharge: No Stand-Alone Forms: My [facility] Simplist, Smoking Cessation Medications and DC Order Prescriptions: New epinephrine [EpiPen 2-Chaz] 0.3 mg/0.3 mL auto-injector 0.3 mg IM Q3H PRN (Reason: anaphylaxis, throat swelling) Qty: 2 RF: 0 dexamethasone 1 mg Tablet See Rx Instructions .ROUTE .COMPLEX Qty: 12 RF: 0 Continued cyanocobalamin (vitamin B-12) [Vitamin B-12] 1,000 mcg Tablet 1,000 mcg PO QAM RF: 0 cholecalciferol (vitamin D3) [Vitamin D3] 1,000 unit Capsule 1,000 unit PO QAM RF: 0 omega 0-nra-dry-fish oil [Fish Oil] 1,000 mg (120 mg-180 mg) Capsule 1 cap PO QAM RF: 0 hydrocodone-acetaminophen 7.5-325 mg tablet 1 tab PO TID PRN (Reason: Pain) RF: 0 Provad 30 billion cell capsule 1 cap PO DAILY Qty: 7 RF: 0 atenolol 100 mg Tablet 100 mg PO QAM RF: 0 amlodipine 2.5 mg Tablet 2.5 mg PO QAM RF: 0 hydrochlorothiazide 12.5 mg Capsule 12.5 mg PO QAM RF: 0 docusate sodium [Stool Softener] 100 mg Capsule 200 mg PO QAM RF: 0 Humalog U-100 Insulin 100 unit/mL Cartridge 5 - 10 sliding scale dose SUBCUT USEASDIRECTD RF: 0 solifenacin [Vesicare] 10 mg Tablet 10 mg PO QAM RF: 0 Basaglar KwikPen U-100 Insulin 100 unit/mL (3 mL) Insulin Pen 30 unit SUBCUT QAM RF: 0 omeprazole 20 mg Tablet,Delayed Release (Dr/Ec) 20 mg PO BID RF: 0 Movantik 12.5 mg Tablet 12.5 mg PO QAM RF: 0 donepezil 5 mg tablet 5 mg PO DAILY RF: 0 Discontinued clindamycin HCl 300 mg capsule 600 mg PO TID Qty: 26 RF: 0 lisinopril 20 mg Tablet 20 mg PO QAM RF: 0 Discharge Orders: Discharge Order (Routine); Ordered 08/12/19 Ordered By: Anatoly Zurita/Other Patient Handouts: Using an Epinephrine Autoinjector, ED Allergic React Food, Epinephrine injection Auto-injector Admission Data Admit Date/Time: 08/10/19 16:39 Attending Provider: Anatoly Tristan Admit Provider: Anatoly Garcia Primary Care Provider: Flakita Mensah Other Providers: [facility],Home [facility] ; Laverne Bullock How Other Interventions: Discharge Summary Assessment (RN) Last Done: 08/12/19 14:00 DC Date/Time DO NOT enter until pt leaves facility: 08/12/19 14:54 Coding Level of Care Code D/C Day Management >30 mins Diagnoses Throat swelling R22.1 Milk protein allergy Z91.011 Hypertension I10 Diabetes mellitus E11.9
== END 2019-08-12 14:54 | disposition home health service (06) | DRG 916 ==
LOC: 2S → SUATTDRO 16:39 → 2N 08-11 10:48

== ENCOUNTER 2021-01-31 14:57 | Inpatient (IN) ==
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
[2021-01-31 22:18] LABS: Appearance Urine Cloudy (Clear); Bilirubin Urine Negative (Negative); Blood Urine 3+ (Negative); Color Urine Red; Glucose Urine UA Negative (Negative); Ketones Urine Negative (Negative); Leukocyte Esterase Urine Trace (Negative); Nitrite Urine Negative (Negative); Protein Urine 3+ (Negative); Urobilinogen Urine Negative (Negative)
[2021-01-31 22:20] LABS: Epithelial Cell Urine 0-5 /lpf (0-5)
[2021-01-31 22:21] LABS: Bacteria Urine Negative (Negative); RBC Urine >30 /hpf (0-4); WBC Urine 0-5 /hpf (0-5)
[2021-02-01 00:18] LABS: Basophils # (auto) 0.02 K/uL (0-0.2); Basophils % (auto) 0.2 %; Eosinophils # (auto) 0.24 K/uL (0-0.5); Eosinophils % (auto) 2.6 %; Hematocrit (blood only) 36.7 % (42-52); Hemoglobin 12.7 g/dL (14.0-18.0); Immature Granulocytes # (auto) 0.02 K/uL (0.00-0.02); Immature Granulocytes % (auto) 0.2 %; Lymphocytes % (auto) 17.6 %; Mean Corpuscular Hemoglobin 27.3 pg (25-34); Mean Corpuscular Hgb Conc 34.6 g/dL (32-36); Mean Corpuscular Volume 78.8 fL (80-100); Mean Platelet Volume 9.3 fL (7.4-10.4); Monocytes # (auto) 0.55 K/uL (0.11-0.59); Neutrophils # (auto) 6.68 K/uL (1.4-6.5); Neutrophils % (auto) 73.4 %; Platelet Count 224 K/uL (130-400); RDW Standard Deviation 39.6 fL (36.4-46.3); Red Blood Count 4.66 M/uL (4.7-6.1); White Blood Count 9.11 K/uL (4.8-10.8)
[2021-02-01 00:37] LABS: BUN Creatinine Ratio 18.4 (10-20); Calcium 8.8 mg/dl (8.5-10.1); Creatinine Clr Calc Pharmacy 43.7 ml/min; Est GFR (African American) 55.7 ml/min; Potassium 3.8 mmol/L (3.5-5.1)
[2021-02-01] MEDS ORDERED: DEXTROSE 50% 50 ML SYRINGE IV PRN (02:34)
[2021-02-01] MEDS ORDERED: GLUCAGON FOR INJ 1 MG VIAL SQ PRN (02:34)
[2021-02-01] MEDS ORDERED: CARBOHYDRATES FOR HYPOGLYCEMIA PO PRN (02:34)
[2021-02-01] MEDS ORDERED: DOCUSATE SODIUM/SENNA 50/8.6MG TAB PO PRN (02:34)
[2021-02-01] MEDS ORDERED: GLUCOSE 40% GEL 15 GM TUBE PO PRN (02:34)
[2021-02-01] MEDS ORDERED: GLUCOSE 10 TABS/TUBE PO PRN (02:34)
[2021-02-01] MEDS ORDERED: ACETAMINOPHEN 500 MG TAB PO PRN (02:42)
[2021-02-01] MEDS: HYDROCODONE/ACETAMOPHEN 5/325MG TAB PO SCH ×3 (03:13→21:12)
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
[2021-02-01 07:38] LABS: Basophils # (auto) 0.02 K/uL (0-0.2); Basophils % (auto) 0.3 %; Eosinophils # (auto) 0.21 K/uL (0-0.5); Eosinophils % (auto) 2.9 %; Hematocrit (blood only) 32.9 % (42-52); Hemoglobin 11.2 g/dL (14.0-18.0); Immature Granulocytes # (auto) 0.04 K/uL (0.00-0.02); Immature Granulocytes % (auto) 0.6 %; Lymphocytes # (auto) 1.47 K/uL (1.2-3.4); Lymphocytes % (auto) 20.2 %; Mean Corpuscular Hemoglobin 26.7 pg (25-34); Mean Corpuscular Volume 78.5 fL (80-100); Mean Platelet Volume 9.1 fL (7.4-10.4); Monocytes # (auto) 0.56 K/uL (0.11-0.59); Monocytes % (auto) 7.7 %; Neutrophils # (auto) 4.97 K/uL (1.4-6.5); Neutrophils % (auto) 68.3 %; Platelet Count 196 K/uL (130-400); RDW Standard Deviation 39.7 fL (36.4-46.3); Red Blood Count 4.19 M/uL (4.7-6.1); White Blood Count 7.27 K/uL (4.8-10.8)
[2021-02-01 08:04] LABS: Estimated Average Glucose 163 mg/dl; Hemoglobin A1C 7.3 % (4.5-5.6)
[2021-02-01] MEDS: VESICARE~ORDER AWAITING ACTION SCH ×3 (08:27→23:54)
[2021-02-01] MEDS: ONDANSETRON INJ 2 MG/ML 2 ML VIAL IV PRN (08:44)
[2021-02-01] MEDS: amLODIPine BESYLATE 5 MG TAB PO SCH (08:45)
[2021-02-01] MEDS: hydroCHLOROthiazide 25 MG TAB PO SCH (08:45)
[2021-02-01] MEDS: FAMOTIDINE 40 MG TABLET PO SCH (08:46)
[2021-02-01] MEDS: GABAPENTIN 300 MG CAP PO SCH ×2 (08:46→21:12)
[2021-02-01] MEDS: ATENOLOL 50 MG TABLET PO SCH (08:46)
[2021-02-01] MEDS: NYSTATIN CR 15 GM TUBE EXT SCH ×2 (08:47→21:13)
[2021-02-01] MEDS: INSULIN ASPART 100 UNITS/ML 3 ML PEN SC SCH ×4 (09:25→21:42)
[2021-02-01] MEDS: INSULIN GLARGINE SOLOSTAR 100 UNITS/ML 3 ML PEN SQ SCH (09:26)
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
[2021-02-01] MEDS ORDERED: SODIUM CHLORIDE 0.9% 1000ML 1,000 ML IV SCH (11:15)
[2021-02-01] MEDS ORDERED: diphenhydrAMINE 50 MG/ML VIAL IV PRN (12:01)
[2021-02-01 12:48] LABS: Appearance Urine Turbid (Clear); Bacteria Urine Automated 1+ (Negative); Bilirubin Urine Negative (Negative); Blood Urine 3+ (Negative); Color Urine Yellow; Epithelial Cell Urine Auto >30 /lpf (0-5); Glucose Urine UA Negative (Negative); Ketones Urine Negative (Negative); Leukocyte Esterase Urine 3+ (Negative); Nitrite Urine Negative (Negative); Protein Urine 2+ (Negative); Urobilinogen Urine Negative (Negative); WBC Urine Automated >30 /hpf (0-5)
[2021-02-01 12:50] LABS: Basophils # (auto) 0.01 K/uL (0-0.2); Basophils % (auto) 0.1 %; Eosinophils # (auto) 0.11 K/uL (0-0.5); Eosinophils % (auto) 1.5 %; Hematocrit (blood only) 33.2 % (42-52); Hemoglobin 11.1 g/dL (14.0-18.0); Immature Granulocytes # (auto) 0.03 K/uL (0.00-0.02); Immature Granulocytes % (auto) 0.4 %; Lymphocytes # (auto) 1.14 K/uL (1.2-3.4); Lymphocytes % (auto) 15.4 %; Mean Corpuscular Hemoglobin 26.4 pg (25-34); Mean Corpuscular Hgb Conc 33.4 g/dL (32-36); Mean Corpuscular Volume 78.9 fL (80-100); Mean Platelet Volume 8.7 fL (7.4-10.4); Monocytes # (auto) 0.47 K/uL (0.11-0.59); Monocytes % (auto) 6.4 %; Neutrophils # (auto) 5.62 K/uL (1.4-6.5); Neutrophils % (auto) 76.2 %; Platelet Count 185 K/uL (130-400); RDW Coefficient of Variation 13.7 % (11.5-14.5); Red Blood Count 4.21 M/uL (4.7-6.1); White Blood Count 7.38 K/uL (4.8-10.8)
[2021-02-01] MEDS ORDERED: levoFLOXacin/D5W 500 MG/100 ML BAG IV SCH (13:00)
[2021-02-01 13:05] LABS: RBC Urine Automated >30 /hpf (0-4)
[2021-02-01 13:07] LABS: Cast Urine Automated 0 /lpf (0-5)
[2021-02-01] MEDS ORDERED: bisacodyL 5 MG TABEC PO PRN (13:14)
[2021-02-01 13:17] LABS: Thyroid Stimulating Hormone 0.637 uIu/ml (0.300-4.500)
--- NOTE | 2021-02-01 18:04 | History & Physical Bridge Note ---
Date of Service February 01, 2021 History & Physical Bridge Note I have examined the patient, reviewed the History & Physical and in the interval since the performance of the History & Physical I have noted the following changes of clinical significance: no changes noted Patient seen early this afternoon. Doing well. Pain controlled. No further bleeding. Seen by Urology this morning -- suspect hematuria 2nd to traumatic catheter exchange. --> bedside irrigation with 5cc old clot and urine cleared. CBI clamped to evaluate urine throughout day. Repeat urine sent --> pending. Given 1x dose of Levaquin (hx pseudomonas sensitive to such) for manipulation/irrigation of catheter (on allergies, but hx hives, no specific issues pt notes. Benadryl available prn and discussed with patient to alert if any reaction) If cx grows, possible hematuria 2d to infection but would hold off on further abx --> continue to monitor cx If urine remains relatively clear overnight and patient stable, possible d/c tomorrow. Urology to see in AM. Cr stable 1.37 Hgb on admit 12.7 Hgb 11.2 this morning --> 11.1 this afternoon on repeat and stable. MCV noted to be 78.9 --- will obtain iron studies. caution with PO given issues with constipation Last c-scope 2 years ago, several polyps removed, felt to be benign. Admits to BRBPR on toilet paper from hemorrhoids but no melena or dark/tarry stools. Patient notes chronic issues with constipation and requesting stool softener/laxative. On Movantik TRANSCRIPTION but agrees to Dulcolax/senna. Continue to monitor overnight with possible dc in AM
[2021-02-01] MEDS: DONEPEZIL HCL 5 MG TAB PO SCH (21:12)
[2021-02-02 08:50] LABS: Basophils # (auto) 0.01 K/uL (0-0.2); Basophils % (auto) 0.1 %; Eosinophils # (auto) 0.12 K/uL (0-0.5); Eosinophils % (auto) 1.4 %; Hematocrit (blood only) 34.8 % (42-52); Hemoglobin 11.8 g/dL (14.0-18.0); Immature Granulocytes # (auto) 0.03 K/uL (0.00-0.02); Immature Granulocytes % (auto) 0.3 %; Lymphocytes # (auto) 0.66 K/uL (1.2-3.4); Lymphocytes % (auto) 7.7 %; Mean Corpuscular Hemoglobin 27.1 pg (25-34); Mean Corpuscular Hgb Conc 33.9 g/dL (32-36); Mean Corpuscular Volume 79.8 fL (80-100); Mean Platelet Volume 9.1 fL (7.4-10.4); Monocytes # (auto) 0.89 K/uL (0.11-0.59); Monocytes % (auto) 10.4 %; Neutrophils # (auto) 6.87 K/uL (1.4-6.5); Neutrophils % (auto) 80.1 %; Platelet Count 175 K/uL (130-400); RDW Coefficient of Variation 13.7 % (11.5-14.5); RDW Standard Deviation 39.7 fL (36.4-46.3); Red Blood Count 4.36 M/uL (4.7-6.1); White Blood Count 8.58 K/uL (4.8-10.8)
[2021-02-02 09:10] LABS: BUN Creatinine Ratio 15.4 (10-20); Calcium 8.6 mg/dl (8.5-10.1); Creatinine Clr Calc Pharmacy 49.8 ml/min; Est GFR (African American) 56.2 ml/min; Est GFR (Non-African American) 48.5 ml/min
--- NOTE | 2021-02-02 09:17 | Hospitalist Progress Note ---
Date of Service February 02, 2021 Assessment & Plan (1) Hematuria: Plan: 80yo male with suprapubic catheter presenting with gross hematuria with clot passage, blocked catheter requiring flushing and initiation of CBI. CBI now clamped. Urology consulted -- suspect hematuria 2nd to traumatic catheter exchange however could be 2nd infection --> bedside irrigation with 5cc old clot and urine cleared. CBI clamped to evaluate urine throughout day. Hgb dropped to 11.1--> improved to 11.8 on repeat and urine remains clear Given Levaquin 500mg IV 02/01 for catheter manipulation however discussed with pharmacy and will order 750mg IV for tonight and next dose due 48 hour after given renal impairment to complete 3 doses as discussed with Urology given repeat urine cx looked infected +bacteria. They will sign off and arrange outpt f/u and hammond exchange. Cr stable 1.36 Given risk factors and discussion with patient, would like to wait for final cx/sensitivities given multiple drug allergies and has been tolerating Levaquin (Hives with Cipro and Benadryl available prn) Urine cx preliminary gram negative bacilli x 2 --> follow (2) Diabetes mellitus: Plan: Chronic. Last A1C=7.8 in 05/2020 --> repeat 7.3 Lantus 30u QAM, ISS while inpatient BSGs acceptable Continue to monitor (3) Hypertension: Plan: Chronic. Blood pressure controlled Continue amlodipine 2.5mg, atenolol 100mg daily, HCTZ 12.5mg daily monitor (4) Constipation: Plan: Chronic issue, on Movantik but states not effective Working on bowel regimen --> mag citrate today as had been effective in the past MCV noted to be 78.9 --- will obtain iron studies. caution with PO given issues with constipation Last c-scope 2 years ago by his report but appears this was done Feb [address] Thorpe, several polyps removed, felt to be benign. Admits to BRBPR on toilet paper from hemorrhoids but no melena or dark/tarry stools. 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 I agree w/ the corley components of her documentation. Anatoly Garcia MD Subjective Patient evaluated this morning. Feeling better. Tolerated Levaquin without issue -- no hives. Will continued. Discussed Benadryl available if needed. Encouraged he already received this yesterday and has not had any issues. Discussed keeping overnight to monitor cultures to ensure sensitivities given risk factors and limited choices given allergy list. No fever, chills, chest pain, shortness of breath. Passing gas but no BM. Will order further bowel regimen. Questions/concerns addressed at this time. Review of Systems Review of Systems: All systems reviewed & are unremarkable except as noted in HPI & below Physical Exam Physical Exam: General: patient resting comfortably, NAD, non-toxic in appearance, AA&O Skin: warm, dry, intact, no rashes or lesions HEENT: NC/AT, PERRL, EOMI, anicteric sclera, conjunctiva without injection, external ear normal to inspection and nontender, nares patent, moist mucus membranes, dentition intact, no oropharyngeal lesions, neck supple, trachea midline, no LAD, no thyromegaly, no JVD Heart: +S1/S2, regular, no m/r/g Lungs: equal air entry bilaterally, no rales/rhonchi/wheezes Abd: +BS, soft, NT/ND, no masses/organomegaly/ascites Suprapubic catheter in place with clear urine draining in bag, no clots Ext: s/p right BKA, extremities warm, 2+ pulses, no clubbing/cyanosis or edema Neuro: nonfocal, patient AA&O x 4, speech intact, no facial droop, moving all extremities on command with equal strength 5/5 Results & Data Results & Data ([facility]) Vital Signs (Past 12 Hours) Vital Signs Temp Pulse Pulse Resp BP Pulse Ox 02/02/21 07:38 36.9 C 62 18 117/65 96 02/02/21 00:07 36.6 C 58 L 18 137/71 96 Laboratory Results 02/02/21 02/02/21 02/02/21 Range/Units 08:27 08:27 08:17 WBC 8.58 (4.8-10.8) K/uL RBC 4.36 L (4.7-6.1) M/uL Hgb 11.8 L (14.0-18.0) g/dL Hct 34.8 L (42-52) % MCV 79.8 L (80-100) fL MCH 27.1 (25-34) pg MCHC 33.9 (32-36) g/dL RDW Std Deviation 39.7 (36.4-46.3) fL RDW Coeff of Lili 13.7 (11.5-14.5) % Plt Count 175 (130-400) K/uL MPV 9.1 (7.4-10.4) fL Immature Gran % (Auto) 0.3 % Neut % (Auto) 80.1 % Lymph % (Auto) 7.7 % Woodruff % (Auto) 10.4 % Eos % (Auto) 1.4 % Baso % (Auto) 0.1 % Neut # (Auto) 6.87 H (1.4-6.5) K/uL Lymph # (Auto) 0.66 L (1.2-3.4) K/uL Woodruff # (Auto) 0.89 H (0.11-0.59) K/uL Eos # (Auto) 0.12 (0-0.5) K/uL Baso # (Auto) 0.01 (0-0.2) K/uL Immature Gran # (Auto) 0.03 H (0.00-0.02) K/uL Sodium 130 L (136-145) mmol/L Potassium 4.0 (3.5-5.1) mmol/L Chloride 96 L (98-107) mmol/L Carbon Dioxide 28 (21-32) mmol/L Anion Gap 6.0 (3-11) BUN 21 H (7-18) mg/dl Creatinine 1.36 (0.6-1.4) mg/dl Est Cr Clr Drug Dosing 49.8 ml/min Est GFR ( Amer) 56.2 ml/min Est GFR (Non-Af Amer) 48.5 ml/min BUN/Creatinine Ratio 15.4 (10-20) Glucose 165 H (70-99) mg/dl POC Glucose 168 H (70-99) mg/dl Calcium 8.6 (8.5-10.1) mg/dl Iron (35-175) mcg/dl TIBC (250-450) mcg/dl Transferrin (200-360) mg/dl Transferrin % Sat (20-50) % Ferritin (8-388) ng/ml TSH (0.300-4.500) uIu/ml Urine Color Urine Appearance (Clear) Urine pH (4.5-7.5) Ur Specific Brew[place] (1.000-1.030) Urine Protein (Negative) Urine Glucose (UA) (Negative) Urine Ketones (Negative) Urine Blood (Negative) Urine Nitrite (Negative) Urine Bilirubin (Negative) Urine Urobilinogen (Negative) Ur Leukocyte Esterase (Negative) Urine WBC (Auto) (0-5) /hpf Urine RBC (Auto) (0-4) /hpf U Hyaline Cast (Auto) (0-5) /lpf U Epithel Cells (Auto) (0-5) /lpf Urine Bacteria (Auto) (Negative) Urine Yeast 02/01/21 02/01/21 02/01/21 Range/Units 20:28 17:11 12:39 WBC (4.8-10.8) K/uL RBC (4.7-6.1) M/uL Hgb (14.0-18.0) g/dL Hct (42-52) % MCV (80-100) fL MCH (25-34) pg MCHC (32-36) g/dL RDW Std Deviation (36.4-46.3) fL RDW Coeff of Lili (11.5-14.5) % Plt Count (130-400) K/uL MPV (7.4-10.4) fL Immature Gran % (Auto) % Neut % (Auto) % Lymph % (Auto) % Woodruff % (Auto) % Eos % (Auto) % Baso % (Auto) % Neut # (Auto) (1.4-6.5) K/uL Lymph # (Auto) (1.2-3.4) K/uL Woodruff # (Auto) (0.11-0.59) K/uL Eos # (Auto) (0-0.5) K/uL Baso # (Auto) (0-0.2) K/uL Immature Gran # (Auto) (0.00-0.02) K/uL Sodium (136-145) mmol/L Potassium (3.5-5.1) mmol/L Chloride (98-107) mmol/L Carbon Dioxide (21-32) mmol/L Anion Gap (3-11) BUN (7-18) mg/dl Creatinine (0.6-1.4) mg/dl Est Cr Clr Drug Dosing ml/min Est GFR ( Amer) ml/min Est GFR (Non-Af Amer) ml/min BUN/Creatinine Ratio (10-20) Glucose (70-99) mg/dl POC Glucose 131 H 127 H (70-99) mg/dl Calcium (8.5-10.1) mg/dl Iron 47 (35-175) mcg/dl TIBC 213 L (250-450) mcg/dl Transferrin 167 L (200-360) mg/dl Transferrin % Sat 20 (20-50) % Ferritin 273.0 (8-388) ng/ml TSH 0.637 (0.300-4.500) uIu/ml Urine Color Urine Appearance (Clear) Urine pH (4.5-7.5) Ur Specific Brew[place] (1.000-1.030) Urine Protein (Negative) Urine Glucose (UA) (Negative) Urine Ketones (Negative) Urine Blood (Negative) Urine Nitrite (Negative) Urine Bilirubin (Negative) Urine Urobilinogen (Negative) Ur Leukocyte Esterase (Negative) Urine WBC (Auto) (0-5) /hpf Urine RBC (Auto) (0-4) /hpf U Hyaline Cast (Auto) (0-5) /lpf U Epithel Cells (Auto) (0-5) /lpf Urine Bacteria (Auto) (Negative) Urine Yeast 02/01/21 02/01/21 02/01/21 Range/Units 12:39 12:32 12:11 WBC 7.38 (4.8-10.8) K/uL RBC 4.21 L (4.7-6.1) M/uL Hgb 11.1 L (14.0-18.0) g/dL Hct 33.2 L (42-52) % MCV 78.9 L (80-100) fL MCH 26.4 (25-34) pg MCHC 33.4 (32-36) g/dL RDW Std Deviation 39.0 (36.4-46.3) fL RDW Coeff of Lili 13.7 (11.5-14.5) % Plt Count 185 (130-400) K/uL MPV 8.7 (7.4-10.4) fL Immature Gran % (Auto) 0.4 % Neut % (Auto) 76.2 % Lymph % (Auto) 15.4 % Woodruff % (Auto) 6.4 % Eos % (Auto) 1.5 % Baso % (Auto) 0.1 % Neut # (Auto) 5.62 (1.4-6.5) K/uL Lymph # (Auto) 1.14 L (1.2-3.4) K/uL Woodruff # (Auto) 0.47 (0.11-0.59) K/uL Eos # (Auto) 0.11 (0-0.5) K/uL Baso # (Auto) 0.01 (0-0.2) K/uL Immature Gran # (Auto) 0.03 H (0.00-0.02) K/uL Sodium (136-145) mmol/L Potassium (3.5-5.1) mmol/L Chloride (98-107) mmol/L Carbon Dioxide (21-32) mmol/L Anion Gap (3-11) BUN (7-18) mg/dl Creatinine (0.6-1.4) mg/dl Est Cr Clr Drug Dosing ml/min Est GFR ( Amer) ml/min Est GFR (Non-Af Amer) ml/min BUN/Creatinine Ratio (10-20) Glucose (70-99) mg/dl POC Glucose 174 H (70-99) mg/dl Calcium (8.5-10.1) mg/dl Iron (35-175) mcg/dl TIBC (250-450) mcg/dl Transferrin (200-360) mg/dl Transferrin % Sat (20-50) % Ferritin (8-388) ng/ml TSH (0.300-4.500) uIu/ml Urine Color Yellow Urine Appearance Turbid A (Clear) Urine pH 5.0 (4.5-7.5) Ur Specific Brewton 1.010 (1.000-1.030) Urine Protein 2+ H (Negative) Urine Glucose (UA) Negative (Negative) Urine Ketones Negative (Negative) Urine Blood 3+ H (Negative) Urine Nitrite Negative (Negative) Urine Bilirubin Negative (Negative) Urine Urobilinogen Negative (Negative) Ur Leukocyte Esterase 3+ H (Negative) Urine WBC (Auto) >30 H (0-5) /hpf Urine RBC (Auto) >30 H (0-4) /hpf U Hyaline Cast (Auto) 0 (0-5) /lpf U Epithel Cells (Auto) >30 H (0-5) /lpf Urine Bacteria (Auto) 1+ H (Negative) Urine Yeast Not Reportable PG Care Time/CCT Total # of Minutes Spent Total Time Spent with Patient: Total time spent is greater than 50% in coordination of care (as documented) at patient's floor/unit and/or counseling patient: Coding Level of Care Code 61534 Subseq Hosp Care Lvl 3 Diagnoses Hematuria R31.0 Hematuria type: gross Diabetes mellitus E11.9 Hypertension I10 Constipation K59.00 Morris esophagus K22.70 (1) Hematuria Hematuria type: gross Qualified Code(s): R31.0 - Gross hematuria
[2021-02-02] MEDS ORDERED: bisacodyL 5 MG TABEC PO ONE (09:30)
[2021-02-02] MEDS: INSULIN ASPART 100 UNITS/ML 3 ML PEN SC SCH ×4 (09:44→21:22)
[2021-02-02] MEDS: VESICARE~ORDER AWAITING ACTION SCH ×2 (09:45→14:42)
[2021-02-02] MEDS: hydroCHLOROthiazide 25 MG TAB PO SCH (09:52)
[2021-02-02] MEDS: ATENOLOL 50 MG TABLET PO SCH (09:52)
--- NOTE | 2021-02-02 09:52 | Urology Progress Note ---
Date of Service February 02, 2021 Assessment & Plan (1) Suprapubic catheter: (2) Hematuria: Plan: 80-year-old male with a history of prostate cancer status post radical prostatectomy and salvage XRT with suspected persistent urinary continence that prompted an SP tube placement by an outside facility. He presented the emergency department with clot retention after a routine SP tube changes facility Urine is clear today off CBI. Recommend capping CBI. Urine cultures coming back prelim positive, however this is expected due to colonization. Low likelihood of infection and recommend only 3 total days of culture specific antibiotics Urology will schedule Marinelli catheter exchange in clinic this week or next week and patient will keep previous follow-up with Dr. Conway in early February -Recommend increasing bowel regimen this patient reported constipation Urology to sign off. Stable from urologic perspective. Please call us with any questions or concerns. Admission and Anticipated Discharge Date Admission Date: February 01, 2021 Subjective No acute issues overnight. Patient reports feeling better outside of constipation. Marinelli catheter draining clear urine off CBI and he reports no irrigation overnight. Hemodynamically stable and labs stable. Review of Systems Review of Systems: 14 point review of systems negative outside of what is listed above in HPI Physical Exam Physical Exam: General: Alert and oriented, no acute distress HEENT: Normocephalic, mucous membranes moist Cardiovascular: Regular rate Pulmonary: Nonlabored respirations Abdomen: Nondistended : 20 Maori three-way catheter draining clear urine, CBI off. Neuro: No gross deficits Skin: Warm, dry, no rashes noted Results & Data ([facility]) Vital Signs (Past 12 Hours) Vital Signs Temp Pulse Pulse Resp BP Pulse Ox 02/02/21 07:38 36.9 C 62 18 117/65 96 02/02/21 00:07 36.6 C 58 L 18 137/71 96 PG Care Time/CCT Total # of Minutes Spent Total Time Spent with Patient: Total time spent is greater than 50% in coordination of care (as documented) at patient's floor/unit and/or counseling patient: Coding Level of Care Code 39914 Subseq Hosp Care Lvl 2 Diagnoses Suprapubic catheter Z93.59 Hematuria R31.0 Hematuria type: gross (1) Hematuria Hematuria type: gross Qualified Code(s): R31.0 - Gross hematuria
[2021-02-02] MEDS: FAMOTIDINE 40 MG TABLET PO SCH (09:53)
[2021-02-02] MEDS: HYDROCODONE/ACETAMOPHEN 5/325MG TAB PO SCH ×2 (09:54→21:17)
[2021-02-02] MEDS: amLODIPine BESYLATE 5 MG TAB PO SCH (09:55)
[2021-02-02] MEDS: GABAPENTIN 300 MG CAP PO SCH ×2 (09:56→21:17)
[2021-02-02] MEDS: INSULIN GLARGINE SOLOSTAR 100 UNITS/ML 3 ML PEN SQ SCH (09:56)
[2021-02-02] MEDS: NYSTATIN CR 15 GM TUBE EXT SCH ×2 (09:57→21:18)
[2021-02-02] MEDS: CIPROFLOXACIN 500 MG TAB PO SCH ×2 (10:38→13:00)
[2021-02-02] MEDS ORDERED: MAGNESIUM CITRATE 296 ML/BTL PO ONE (12:39)
[2021-02-02] MEDS: ONDANSETRON INJ 2 MG/ML 2 ML VIAL IV PRN (14:50)
--- NOTE | 2021-02-02 16:42 | XRay Report ---
KUB CLINICAL HISTORY: Constipation. FINDINGS: 2 AP supine abdominal radiographs are correlated with abdominal CT dated 03/16/2020. There is a nonobstructed abdominal bowel gas pattern. Moderate fecal retention is seen throughout the colon . No evidence of intraperitoneal free air is seen on these supine images. There are no abnormal abdom inal calcifications. Cholecystectomy clips are seen in the right upper quadrant. Surgical clips and a catheter project over the pelvis. The skeletal structures are osteopenic and appear intact. Lumbosac ral spondylosis is noted. IMPRESSION: Moderate colonic fecal retention. Electronically signed by: Ethan Vu M.D. 02/02/2021 4:41 PM
[2021-02-02] MEDS: DONEPEZIL HCL 5 MG TAB PO SCH (21:17)
[2021-02-03] MEDS ORDERED: levoFLOXacin/D5W 750 MG/150 ML BAG IV ONE
[2021-02-03] MEDS: VESICARE~ORDER AWAITING ACTION SCH ×3 (00:49→15:23)
[2021-02-03] MEDS ORDERED: levoFLOXacin 500 MG TAB PO SCH (08:00)
[2021-02-03 08:48] LABS: Basophils # (auto) 0.02 K/uL (0-0.2); Basophils % (auto) 0.3 %; Eosinophils # (auto) 0.14 K/uL (0-0.5); Eosinophils % (auto) 1.9 %; Hemoglobin 12.5 g/dL (14.0-18.0); Immature Granulocytes # (auto) 0.06 K/uL (0.00-0.02); Immature Granulocytes % (auto) 0.8 %; Lymphocytes # (auto) 0.65 K/uL (1.2-3.4); Lymphocytes % (auto) 8.9 %; Mean Corpuscular Hgb Conc 33.8 g/dL (32-36); Mean Corpuscular Volume 79.9 fL (80-100); Mean Platelet Volume 9.5 fL (7.4-10.4); Monocytes # (auto) 0.89 K/uL (0.11-0.59); Monocytes % (auto) 12.1 %; Neutrophils # (auto) 5.58 K/uL (1.4-6.5); Platelet Count 212 K/uL (130-400); RDW Coefficient of Variation 13.9 % (11.5-14.5); RDW Standard Deviation 40.3 fL (36.4-46.3); Red Blood Count 4.63 M/uL (4.7-6.1); White Blood Count 7.34 K/uL (4.8-10.8)
[2021-02-03 09:08] LABS: Calcium 9.3 mg/dl (8.5-10.1); Creatinine Clr Calc Pharmacy 40.8 ml/min; Est GFR (African American) 44.1 ml/min; Est GFR (Non-African American) 38.1 ml/min; Potassium 3.8 mmol/L (3.5-5.1)
[2021-02-03] MEDS: amLODIPine BESYLATE 5 MG TAB PO SCH (09:12)
[2021-02-03] MEDS: ATENOLOL 50 MG TABLET PO SCH (09:12)
[2021-02-03] MEDS: hydroCHLOROthiazide 25 MG TAB PO SCH (09:13)
[2021-02-03] MEDS: FAMOTIDINE 40 MG TABLET PO SCH (09:13)
[2021-02-03] MEDS: GABAPENTIN 300 MG CAP PO SCH (09:13)
[2021-02-03] MEDS: HYDROCODONE/ACETAMOPHEN 5/325MG TAB PO SCH (09:14)
[2021-02-03] MEDS: INSULIN ASPART 100 UNITS/ML 3 ML PEN SC SCH ×2 (09:19→13:05)
[2021-02-03] MEDS: INSULIN GLARGINE SOLOSTAR 100 UNITS/ML 3 ML PEN SQ SCH (09:20)
[2021-02-03] MEDS: NYSTATIN CR 15 GM TUBE EXT SCH (10:37)
--- NOTE | 2021-02-03 15:30 | Discharge Summary ---
Date of Service February 03, 2021 Admission HPI Per Admitting Provider João Sweeney is a pleasant 80yo male with history of CKD, DM, GERD. Patient has a longstanding history of suprapubic catheter since 2015 due to obstruction. He follows with Urology - last seen on 12/03/20 for exchange of his suprapubic catheter. Patient had home nursing change his catheter yesterday after which he developed gross hematuria with passage of clots. He was unable to irrigate his catheter. Three-way catheter placed in ER - continuous bladder irrigation initiated. Patient with no complaints. Denies fever, chills, abdominal pain or distention. Denies nausea, vomiting, diarrhea or constipation. Principal Diagnosis Hematuria suspected due to traumatic catheter exchange Possible urine tract infection Constipation Discharge Exam Constitutional WD/WN, vitals as above ENMT external ear and nose normal, oropharynx normal Mouth: no lip abnormality, no oropharynx abnormality and no tongue abnormality Neck trachea midline, no thyromegaly Respiratory normal respiratory effort, lungs clear to auscultation no stridor Cardiovascular RRR, no murmur, no edema Gastrointestinal (Abdomen) normal bowel sounds, soft, nontender, no hepatosplenomegaly Musculoskeletal no cyanosis or clubbing, extremities motor strength 5/5 Skin no rashes, warm and dry Neurologic moves all extremities and awake; not confused Psychiatric A+Ox3, euthymic affect Discharge Data Allergies Allergy/AdvReac Type Severity Reaction Status Date / Time lisinopril Allergy Severe Anaphylaxis Verified 01/31/21 21:23 milk Allergy Severe THROAT Verified 01/31/21 21:23 SWELLS SHUT IF DRINK "TOO MUCH" atorvastatin [From Lipitor] Allergy Intermediate ITHCING/HIV Verified 01/31/21 21:23 ES cephalexin [From Keflex] Allergy Intermediate Hives Verified 01/31/21 21:23 ciprofloxacin [From Cipro] Allergy Intermediate hives Verified 01/31/21 21:23 itching clindamycin Allergy Intermediate Hives Verified 01/31/21 21:23 erythromycin base Allergy Intermediate Hives Verified 01/31/21 21:23 ezetimibe [From Zetia] Allergy Intermediate ITHCING/HIV Verified 01/31/21 21:23 ES fluconazole [From Diflucan] Allergy Intermediate Hives Verified 01/31/21 21:23 garlic Allergy Intermediate ITCHING Verified 01/31/21 21:23 glipizide Allergy Intermediate Hives Verified 01/31/21 21:24 orange Allergy Intermediate Hives Verified 01/31/21 21:24 peanut Allergy Intermediate Hives Verified 01/31/21 21:24 Penicillins Allergy Intermediate ITCHING/HIV Verified 01/31/21 21:24 ES rofecoxib Allergy Intermediate Hives Verified 01/31/21 21:24 soy Allergy Intermediate ITCHING Verified 01/31/21 21:24 chlorophyllin [From Panafil] Allergy Unknown Unknown Verified 01/31/21 21:24 ofloxacin [From Floxin] Allergy Unknown Unknown Verified 01/31/21 21:24 papain [From Panafil] Allergy Unknown Unknown Verified 01/31/21 21:24 pravastatin [From Pravachol] Allergy Unknown Unknown Verified 01/31/21 21:24 Quinolones Allergy Unknown Unknown Verified 01/31/21 21:24 sulfamethoxazole Allergy Unknown Unknown Verified 01/31/21 21:24 [From Bactrim] trimethoprim [From Bactrim] Allergy Unknown Unknown Verified 01/31/21 21:24 urea [From Panafil] Allergy Unknown Unknown Verified 01/31/21 21:24 propoxyphene AdvReac Unknown Unknown Verified 01/31/21 21:24 [From Darvocet-N] Consultations 02/01/21 01:29 Consult Urology Routine Hospital Course (1) Hematuria: João Moore is an 81 year old male admitted to [facility] from February 01 - 2020 due to william hematuria. Most likely this is from traumatic catheter exchange however due to UTI symptoms recommend continuin g antibiotics for further 5 days. Per patient request he was also prescribed diphenhydramine for allergy symptoms although he tolerated Levaquin without side effects during his admission. Due to low sodium levels (129 mmol/L) and dehydration also recommend discontinuing hydrochlorothiazide, he was advised to follow up with his primary care provider regarding his blood pressure. He was advised to start MiraLAX over the counter regarding his chronic constipation to aim for one bowel movement a day and follow up with his PCP regarding this. Recommend he have follow up for repeat upper/lower scopes for further eval of chronic anemia as MCVs <80 since 2018 and recs from report that he have next scope in 2 yrs pending pathology. (Sister from colon ca). (2) Diabetes mellitus: (3) Hypertension: (4) Constipation: (5) Morris esophagus: Total Time Total Time Spent Total Time Spent (In Minutes): 40 Discharge Plan Discharge Items Patient Disposition: Home - Home Health Services Reason For Visit: HEMATURIA Discharge Diagnosis: Hematuria suspected due to traumatic catheter exchange Possible urine tract infection Constipation Activity: Resume your previous activity Non-emergency contact: Primary Care Provider and Urologist Call non-emergency contact if: you have any medication questions and your symptoms worsen Follow-up/Referrals: Conrad Herrmann MD [Primary Care Provider] - 02/18/21 11:20 am ([phone] [facility]. ) Diet: Carb Consistent or DM2 and Heart Healthy Diet Texture: Mechanical soft (ground) Addtl Attending Provider Instructions: You were admitted to [facility] from February 01 - 2020 due to william hematuria. Most likely this is from traumatic catheter exchange however due to UTI symptoms recommend continuing antibiotics for further 5 days. Due to low sodium levels and dehydration also recommend discontinuing hydrochlorothiazide. Please follow-up with your primary care doctor for ongoing management of your blood pressure. Pending Studies at Discharge: No Stand-Alone Forms: My [facility], Smoking Cessation Medications and DC Order Prescriptions: New gabapentin 300 mg Capsule 300 mg PO BID Qty: 60 RF: 0 diphenhydramine HCl [Benadryl] 25 mg capsule 25 - 50 mg PO DAILY PRN (Reason: allergic reaction) Qty: 10 RF: 0 levofloxacin 750 mg tablet 750 mg PO DAILY 5 Days Qty: 5 RF: 0 Continued sennosides-docusate sodium [Lax Stool Softener With Senna] 8.6-50 mg tablet 1 tabcap PO BID PRN (Reason: Constipation) RF: 0 cholecalciferol (vitamin D3) [Vitamin D3] 1,000 unit Capsule 1,000 unit PO QAM RF: 0 donepezil [Aricept] 5 mg Tablet 5 mg PO HS RF: 0 colchicine [Mitigare] 0.6 mg capsule 0.6 mg PO BID PRN (Reason: .GOUT FLARES) RF: 0 atenolol 100 mg Tablet 100 mg PO QAM RF: 0 amlodipine [Norvasc] 2.5 mg Tablet 2.5 mg PO QAM RF: 0 solifenacin [Vesicare] 10 mg Tablet 10 mg PO QAM RF: 0 Basaglar KwikPen U-100 Insulin 100 unit/mL (3 mL) Insulin Pen 30 unit SUBCUT QAM RF: 0 omeprazole 20 mg Tablet,Delayed Release (Dr/Ec) 20 mg PO BID RF: 0 Movantik 12.5 mg Tablet 12.5 mg PO QAM RF: 0 epinephrine [EpiPen 2-Chaz] 0.3 mg/0.3 mL auto-injector 0.3 mg IM Q3H PRN (Reason: anaphylaxis, throat swelling) Qty: 2 RF: 0 hydrocodone-acetaminophen 5-325 mg tablet 1 tab PO AMPM RF: 0 acetaminophen 500 mg Tablet 1,000 mg PO BID PRN (Reason: Pain) RF: 0 nystatin 100,000 unit/gram cream 1 applic TOPICAL BID RF: 0 insulin aspart U-100 [Novolog Flexpen U-100 Insulin] 100 unit/mL (3 mL) insulin pen 5 unit SUBCUT HS RF: 0 triamcinolone acetonide 0.1 % ointment 1 applic TOPICAL BID PRN (Reason: Skin Irritation) RF: 0 cyanocobalamin-salcaprozat sod 1,000-100 mcg-mg Tablet 1 tab PO DAILY RF: 0 clonidine HCl 0.1 mg tablet 0.1 mg PO BID PRN (Reason: Unknown) RF: 0 gabapentin 300 mg capsule 300 mg PO BID RF: 0 Discontinued hydrochlorothiazide 12.5 mg Capsule 12.5 mg PO QAM RF: 0 Discharge Orders: Discharge Order (Routine); Ordered 02/03/21 Ordered By: Anatoly Zurita/Other Patient Handouts: A1C, Managing Type 2 Diabetes, Emptying and Cleaning Your ... Admission Data Admit Date/Time: 02/01/21 01:29 Attending Provider: Anatoly Tristan Admit Provider: Velma Garcia Primary Care Provider: Conrad Herrmann Other Providers: Gamaliel Nava ; [facility],Home Healthcare Other Interventions: Discharge Summary Assessment (RN) Last Done: 02/03/21 16:08 Coding Level of Care Code D/C DAY MANAGEMENT >30 MINS Diagnoses Hematuria R31.0 Hematuria type: gross Diabetes mellitus E11.9 Hypertension I10 Constipation K59.00 Morris esophagus K22.70
[2021-02-03] MEDS: ONDANSETRON INJ 2 MG/ML 2 ML VIAL IV PRN (15:58)
== END 2021-02-03 16:47 | disposition home health service (06) | DRG 699 ==
LOC: ED 14:57 → 3N 02-01 01:29 → SUATTDRO 02-01 01:29 → 3N 02-01 02:08

== ENCOUNTER 2022-04-19 11:25 | Inpatient (IN) ==
[2022-04-19] MEDS ORDERED: SODIUM CHLORIDE 0.9% 500 ML IV ONE (12:13)
[2022-04-19 12:20] LABS: Basophils # (auto) 0.05 K/uL (0-0.2); Basophils % (auto) 0.3 %; Eosinophils # (auto) 0.07 K/uL (0-0.50); Eosinophils % (auto) 0.5 %; Hematocrit (blood only) 35.7 % (40.1-51.0); Hemoglobin 12.1 g/dl (14.0-18.0); Immature Granulocytes # (auto) 0.19 K/uL (0.00-0.02); Immature Granulocytes % (auto) 1.3 %; Lymphocytes # (auto) 0.89 K/uL (1.2-3.4); Lymphocytes % (auto) 5.9 %; Mean Corpuscular Hemoglobin 27.3 pg (25.0-34.0); Mean Corpuscular Hgb Conc 33.9 g/dL (32.0-36.0); Mean Corpuscular Volume 80.6 fL (80.0-100.0); Mean Platelet Volume 10.1 fL (9.4-12.4); Monocytes # (auto) 1.07 K/uL (0.24-0.82); Monocytes % (auto) 7.1 %; Neutrophils # (auto) 12.86 K/uL (1.4-6.5); Neutrophils % (auto) 84.9 %; Platelet Count 392 K/uL (130-400); RDW Coefficient of Variation 14.1 % (11.5-14.5); RDW Standard Deviation 41.3 fL (36.4-46.3); Red Blood Count 4.43 M/uL (4.63-6.08); White Blood Count 15.13 K/ul (4.8-10.8)
--- NOTE | 2022-04-19 12:31 | XRay Report ---
XR chest 1V portable CLINICAL HISTORY: Shortness of breath. COMPARISON STUDY: Chest CT March 16, 2020 and chest radiograph December 13, 2021. FINDINGS: There is no pneumothorax or pleural effusion. Cardiomegaly is unchanged. There is no eviden ce for pulmonary edema. Mild lower lung interstitial thickening and minimal opacities are present. IMPRESSION: Mild lower lung interstitial thickening and minimal bibasilar opacities. The findings are probably chronic or represent atelectasis however an infectious process could appear similar. ACT 112: Negative or not required by law. Electronically signed by: Jabari Ballesteros M.D. 04/19/2022 12:29 PM
[2022-04-19 12:54] LABS: Potassium 3.5 mmol/L (3.5-5.1)
[2022-04-19] MEDS ORDERED: cefTRIAXone SODIUM 2,000 MG/70 ML BAG IV STA (13:09)
[2022-04-19] MEDS ORDERED: ALBUT/IPRATROP 3MG/0.5MG NEB 3 ML VIAL NEB STA (13:11)
[2022-04-19] MEDS ORDERED: DOXYCYCLINE HYCLATE 100 MG in DEXTROSE 5% 100 ML IV STA (13:11)
[2022-04-19] MEDS ORDERED: guaiFENesin 600 MG TABCR PO STA (13:11)
[2022-04-19] MEDS ORDERED: dexAMETHasone**PF** 10 MG/ML VIAL IV ONE (13:11)
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
[2022-04-19 13:55] LABS: Albumin Globulin Ratio 1.1 (0.9-2); Albumin Level 3.7 gm/dl (3.4-5.0); BUN Creatinine Ratio 24.3 (10-20); Bilirubin,Total 0.6 mg/dl (0.2-1.0); Calcium 9.5 mg/dl (8.5-10.1); Creatinine Clr Calc Pharmacy 36.4 ml/min; Est GFR (African American) 42.6 ml/min; Est GFR (Non-African American) 36.7 ml/min; Globulin 3.5 gm/dl (2.5-4.0); Magnesium 2.2 mg/dl (1.7-2.4); Phosphorus 2.6 mg/dl (2.5-4.9); Total Protein 7.2 gm/dl (6.0-8.3)
[2022-04-19 15:08] LABS: Influenza A virus by PCR Negative (Neg); Influenza B virus by PCR Negative (Neg); RSV by PCR Negative (Neg); SARS CoV2 RNA(COVID-19) Ceph NEGATIVE (Negative)
[2022-04-19] MEDS: SODIUM CHLORIDE 0.9% 1000ML 1,000 ML IV SCH ×3 (15:24→22:34)
[2022-04-19] MEDS ORDERED: CARBOHYDRATES FOR HYPOGLYCEMIA PO PRN (17:29)
[2022-04-19] MEDS ORDERED: ALUMINUM/MAGNESIUM SUSP 30 ML UDC PO PRN (17:29)
[2022-04-19] MEDS ORDERED: GLUCOSE 10 TAB/TUBE PO PRN (17:29)
[2022-04-19] MEDS ORDERED: GLUCAGON FOR INJ 1 MG VIAL SQ PRN (17:29)
[2022-04-19] MEDS ORDERED: GLUCOSE 40% GEL 15 GM TUBE PO PRN (17:29)
[2022-04-19] MEDS ORDERED: DEXTROSE 50% 50 ML SYRINGE IV PRN (17:29)
[2022-04-19] MEDS ORDERED: cloNIDine HCL 0.1 MG TAB PO PRN (17:29)
[2022-04-19] MEDS ORDERED: DOCUSATE SODIUM/SENNA 50/8.6MG TAB PO PRN (17:29)
[2022-04-19] MEDS ORDERED: ACETAMINOPHEN 325 MG TAB PO PRN (17:29)
[2022-04-19] MEDS ORDERED: ONDANSETRON INJ 2 MG/ML 2 ML VIAL IV PRN (17:29)
[2022-04-19] MEDS: ALBUT/IPRATROP 3MG/0.5MG NEB 3 ML VIAL INH SCH (18:11)
[2022-04-19] MEDS: PANTOprazole 40 MG TAB PO SCH (18:41)
[2022-04-19] MEDS: ENOXAPARIN INJ 40 MG/0.4 ML SYR SQ SCH (18:41)
[2022-04-19] MEDS: INSULIN ASPART PER UNIT SC SCH ×2 (19:25→22:13)
[2022-04-19] MEDS: DOXYCYCLINE HYCLATE 100 MG in DEXTROSE 5% 100 ML IV SCH (20:39)
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
[2022-04-19] MEDS ORDERED: INFLUENZA VACCINE HIGH DOSE PF 65+ 0.7 ML SYR IM ONE (21:45)
[2022-04-19] MEDS: LANTUS PER UNIT CHARGE SQ SCH (22:16)
[2022-04-20] MEDS: ALBUT/IPRATROP 3MG/0.5MG NEB 3 ML VIAL INH SCH ×4 (00:41→20:10)
[2022-04-20] MEDS: SODIUM CHLORIDE 0.9% 1000ML 1,000 ML IV SCH ×3 (00:59→12:23)
[2022-04-20 04:43] LABS: Basophils # (auto) 0.02 K/uL (0-0.2); Basophils % (auto) 0.2 %; Hematocrit (blood only) 34.4 % (40.1-51.0); Hemoglobin 11.5 g/dl (14.0-18.0); Immature Granulocytes # (auto) 0.16 K/uL (0.00-0.02); Immature Granulocytes % (auto) 1.7 %; Lymphocytes # (auto) 0.55 K/uL (1.2-3.4); Mean Corpuscular Hemoglobin 27.3 pg (25.0-34.0); Mean Corpuscular Hgb Conc 33.4 g/dL (32.0-36.0); Mean Corpuscular Volume 81.5 fL (80.0-100.0); Mean Platelet Volume 9.7 fL (9.4-12.4); Monocytes # (auto) 0.22 K/uL (0.24-0.82); Monocytes % (auto) 2.4 %; Neutrophils # (auto) 8.21 K/uL (1.4-6.5); Neutrophils % (auto) 89.7 %; Platelet Count 343 K/uL (130-400); RDW Coefficient of Variation 14.1 % (11.5-14.5); RDW Standard Deviation 41.8 fL (36.4-46.3); Red Blood Count 4.22 M/uL (4.63-6.08); White Blood Count 9.16 K/ul (4.8-10.8)
[2022-04-20 05:38] LABS: BUN Creatinine Ratio 31.6 (10-20); Calcium 8.8 mg/dl (8.5-10.1); Creatinine Clr Calc Pharmacy 37.1 ml/min; Est GFR (African American) 46.2 ml/min; Est GFR (Non-African American) 39.9 ml/min; Magnesium 2.2 mg/dl (1.7-2.4); Potassium 3.8 mmol/L (3.5-5.1)
[2022-04-20] MEDS: amLODIPine BESYLATE 5 MG TAB PO SCH (09:22)
[2022-04-20] MEDS: ATENOLOL 50 MG TABLET PO SCH (09:23)
[2022-04-20] MEDS: CHOLECALCIFEROL 1,000 UNITS 25 MCG TAB PO SCH (09:23)
[2022-04-20] MEDS: DOXYCYCLINE HYCLATE 100 MG in DEXTROSE 5% 100 ML IV SCH ×2 (09:24→22:47)
[2022-04-20] MEDS: PANTOprazole 40 MG TAB PO SCH (09:24)
[2022-04-20] MEDS: INSULIN ASPART PER UNIT SC SCH ×4 (10:48→21:14)
[2022-04-20] MEDS: LANTUS PER UNIT CHARGE SQ SCH ×2 (11:28→21:15)
--- NOTE | 2022-04-20 12:13 | Electrocardiogram Report ---
Test Reason : Blood Pressure : / mmHG Vent. Rate : 085 BPM Atrial Rate : 085 BPM P-R Int : 208 ms QRS Dur : 090 ms QT Int : 390 ms P-R-T Axes : 040 -14 003 degrees QTc Int : 464 ms Normal sinus rhythm Poor R wave progression, consider anterior KS vs. lead placement vs. LVH Abnormal ECG When compared with ECG of 13-DEC-2021 22:10, No significant change was found Confirmed by Mitchell Sahu ([id number]) on 04/20/2022 12:12:52 PM Referred By: REFERRED SELF Confirmed By:Mitchell Sahu
--- NOTE | 2022-04-20 12:21 | Hospitalist Progress Note ---
Date of Service April 20, 2022 Assessment & Plan (1) Pneumonia: Plan: - WBC 15 with left shift, procalcitonin and lactate 0.9. - CXR: Mild lower lung interstitial thickening and minimal bibasilar opacities. The findings are probably chronic or represent atelectasis however an infectious process could appear similar. - With URI complaints in the setting of recent influenza A, suspect superimposed bacterial pneumonia. -Leukocytosis downtrending, patient appears to be clinically improving with Rocephin/Doxy IV - PT/OT to evaluate patient while admitted, patient may require placement. Discontinue fluids Given extensive allergy history and suspicion for soy/milk allergy likely with medication fillers rather than medication active ingredients discussed trial of p.o. with pharmacy and patient family. Patient has tolerated Rocephin/Doxy IV well, will convert to cefdinir/Doxy p.o. Will give cefdinir 300 mg at 2 PM, then doxycycline 100 mg at 9 PM and continue twice daily dosing. Stagger antibiotic dose to evaluate if patient has an allergic reaction to one or the other. If allergic reaction develops, epi for anaphylaxis and IV Benadryl is travel services professional. Patient should be closely monitored following antibiotic delivery. If no reaction, will fill home pack for 5-7-day course for patient is seen manufacture cannot be guaranteed from outside pharmacy. If patient does have a reaction, then will likely need further treatments as IV and can consider ultrasound- guided placement at that time. (2) Multiple drug allergies: Plan: - He has an extensive list of medication/antibiotic allergies however stats that he only has reactions (hives) to oral formulations and has tolerate IV versions well without adverse reactions. -See antibiotic plan as noted Follow-up with allergy/immunology and Dr. Siddiqui as outpatient. (3) Influenza A: Plan: - Diagnosed two weeks ago with progression of symptoms despite hospitalization at [place] (d/c 04/17), now superimposed pneumonia. - COVID/flu/RSV negative today. - Treatment of community-acquired pneumonia as noted (4) First degree atrioventricular block: Plan: - History of, remains on clonidine and atenolol, per cardiology note okay to continue these as he does not have complete heart block or show symptoms of the bradycardia. (5) Urethral stricture: Plan: - History of prostate cancer, s/p prostatectomy and radiation therapy in 2010. - With urethral stricture and chronic issues with retention, now has suprapubic catheter placed. (6) Diabetes mellitus: Plan: - Continue insulin therapy basal/bolus. - A1c July 2021: 6.7% - DM diet. Hyperglycemic to 300 this morning, after insulin came down to 290. Goal BSG adjusted from 1 101 80-1 101 40, CF tightened from 25-23 and ratio from 12-10. (7) Hypertension: Plan: - Continue amlodipine, atenolol, clonidine. (8) Anemia: Plan: - Secondary to CKD, Hgb 12.1, normocytic. - Continue to monitor. 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 Plan - Admit to medicine with telemetry. - SCDs, Lovenox for VTE PPx. - DNR/DNI. Admission and Anticipated Discharge Date Admission Date: April 19, 2022 Subjective Remains hypoxic on 2 L, more than baseline. Mildly hyponatremic to 132, asymptomatic. Creatinine is starting to downtrend at 1.58, baseline 1.21.5 no reaction to Rocephin at this time. No leukocytosis. BSG is elevated in 300s. Overnight had some difficulty with [place], otherwise doing okay. No allergic reaction, did not have any rash/hives/lip/tongue swelling. No shortness of b reath at bedside, remains on 2 L of oxygen which is above his baseline. Eating/drinking okay. No fever/chills/sweats. Reviewed antibiotic plan with and daughter at bedside. Review of Systems Review of Systems: All systems reviewed & are unremarkable except as noted in Subjective Physical Exam Physical Exam: General: A&Ox3. NAD. Cooperative. Skin is warm, dry without rash/urticaria or angioedema HEENT: Atraumatic, normocephalic. Vision/hearing grossly intact. Pulm: Diminished, scattered expiratory wheezes, trace crackles in the bases no increase in work of breathing. No respiratory distress. Cardiac: RRR, -mrg. Radial pulses intact and symmetrical. Abdominal: Nontender, nondistended, soft. BS present. Extremities: S/p right BKA, surgical site well-healed. Left lower extremity intact, no edema, sensation in ankle dorsi/plantar flexion intact. 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/5 Results & Data Results & Data ([facility]) Vital Signs (Past 12 Hours) Vital Signs Pulse Resp BP Pulse Ox O2 Del Method O2 Flow Rate 04/20/22 11:37 76 20 100 Nasal Cannula 2 04/20/22 09:00 96 H 24 121/69 100 Nasal Cannula 2 04/20/22 06:23 72 20 97 Nasal Cannula 2 PG Care Time/CCT Total # of Minutes Spent Total Time Spent with Patient: Total time spent is greater than 50% in coordination of care (as documented) at patient's floor/unit and/or counseling patient: Coding Level of Care Code 27439 Subseq Hosp Care Lvl 3 Diagnoses Pneumonia J18.9 Multiple drug allergies Z88.9 Influenza A J10.1 First degree atrioventricular block I44.0 Urethral stricture N35.919 Diabetes mellitus E11.9 Hypertension I10 Anemia D64.9 Morris esophagus K22.70
[2022-04-20] MEDS ORDERED: EPINEPHrine INJ 1 MG/ML AMP IM PRN (12:35)
[2022-04-20] MEDS ORDERED: diphenhydrAMINE 50 MG/ML VIAL IV PRN (12:35)
[2022-04-20] MEDS ORDERED: CEFDINIR 300 MG CAP PO SCH (14:00)
[2022-04-20] MEDS ORDERED: cefTRIAXone SODIUM 2,000 MG in DEXTROSE 5% AD-VAN 50 ML IV SCH (14:15)
[2022-04-20] MEDS ORDERED: methylPREDNISolone 60 MG in SYRINGE 0 ML IV ONE (16:15)
[2022-04-20] MEDS ORDERED: Nursing to Pharmacy Communication SCH (16:15)
[2022-04-20] MEDS: cefTRIAXone SODIUM 2,000 MG in DEXTROSE 5% 50 ML IV SCH (16:52)
[2022-04-20] MEDS: ALBUT/IPRATROP 3MG/0.5MG NEB 3 ML VIAL NEB PRN (17:03)
[2022-04-20] MEDS: ENOXAPARIN INJ 40 MG/0.4 ML SYR SQ SCH (18:10)
[2022-04-20] MEDS ORDERED: DOXYCYCLINE HYCLATE 100 MG CAP PO SCH (21:00)
[2022-04-21] MEDS: ALBUT/IPRATROP 3MG/0.5MG NEB 3 ML VIAL INH SCH ×2 (01:40→06:05)
[2022-04-21] MEDS ORDERED: ALBUT/IPRATROP 3MG/0.5MG NEB 3 ML VIAL INH PRN (07:48)
[2022-04-21] MEDS: PANTOprazole 40 MG TAB PO SCH (07:57)
[2022-04-21] MEDS: CHOLECALCIFEROL 1,000 UNITS 25 MCG TAB PO SCH (07:58)
[2022-04-21] MEDS: amLODIPine BESYLATE 5 MG TAB PO SCH (07:58)
[2022-04-21] MEDS: ATENOLOL 50 MG TABLET PO SCH (07:58)
[2022-04-21] MEDS: INSULIN ASPART PER UNIT SC SCH ×4 (08:09→20:01)
[2022-04-21] MEDS: LANTUS PER UNIT CHARGE SQ SCH ×2 (08:10→20:00)
[2022-04-21] MEDS: DOXYCYCLINE HYCLATE 100 MG in DEXTROSE 5% 100 ML IV SCH ×3 (09:30→20:00)
[2022-04-21] MEDS: methylPREDNISolone 60 MG in SYRINGE 0 ML IV SCH (09:32)
[2022-04-21] MEDS: ALBUT/IPRATROP 3MG/0.5MG NEB 3 ML VIAL NEB PRN (16:02)
[2022-04-21] MEDS: cefTRIAXone SODIUM 2,000 MG in DEXTROSE 5% 50 ML IV SCH (16:20)
[2022-04-21] MEDS: ENOXAPARIN INJ 40 MG/0.4 ML SYR SQ SCH (17:22)
[2022-04-21] MEDS: guaiFENesin/DEXTROM SYRUP 200MG/20MG 10ML UDC PO PRN (17:47)
--- NOTE | 2022-04-21 19:55 | Hospitalist Progress Note ---
Date of Service April 21, 2022 Assessment & Plan (1) Pneumonia: Plan: - WBC 15 with left shift, procalcitonin and lactate 0.9. - CXR: Mild lower lung interstitial thickening and minimal bibasilar opacities. The findings are probably chronic or represent atelectasis however an infectious process could appear similar. - With URI complaints in the setting of recent influenza A, suspect superimposed bacterial pneumonia. -Leukocytosis downtrending, patient appears to be clinically improving with Rocephin/Doxy IV - PT/OT to evaluate patient while admitted, patient may require placement. Discontinue fluids Given extensive allergy history and suspicion for soy/milk allergy likely with medication fillers rather than medication active ingredients discussed trial of p.o. with pharmacy and patient family. Patient has tolerated Rocephin/Doxy IV well, will convert to cefdinir/Doxy p.o. Will give cefdinir 300 mg at 2 PM, then doxycycline 100 mg at 9 PM and continue twice daily dosing. Stagger antibiotic dose to evaluate if patient has an allergic reaction to one or the other. If allergic reaction develops, epi for anaphylaxis and IV Benadryl is transit operations supervisor. Patient should be closely monitored following antibiotic delivery. If no reaction, will fill home pack for 5-7-day course for patient is seen manufacture cannot be guaranteed from outside pharmacy. If patient does have a reaction, then will likely need further treatments as IV and can consider ultrasound- guided placement at that time. 04/21 Hypoxia is improving Continue current treatment with Doxy and Rocephin Possible discharge tomorrow PT OT CBC tomorrow (2) Multiple drug allergies: Plan: - He has an extensive list of medication/antibiotic allergies however stats that he only has reactions (hives) to oral formulations and has tolerate IV versions well without adverse reactions. -See antibiotic plan as noted Follow-up with allergy/immunology and Dr. Siddiqui as outpatient. (3) Influenza A: Plan: - Diagnosed two weeks ago with progression of symptoms despite hospitalization at [place] (d/c 04/17), now superimposed pneumonia. - COVID/flu/RSV negative today. - Treatment of community-acquired pneumonia as noted (4) First degree atrioventricular block: Plan: - History of, remains on clonidine and atenolol, per cardiology note okay to continue these as he does not have complete heart block or show symptoms of the bradycardia. (5) Urethral stricture: Plan: - History of prostate cancer, s/p prostatectomy and radiation therapy in 2010. - With urethral stricture and chronic issues with retention, now has suprapubic catheter placed. (6) Diabetes mellitus: Plan: - Continue insulin therapy basal/bolus. - A1c July 2021: 6.7% - DM diet. Hyperglycemic to 300 this morning, after insulin came down to 290. Goal BSG adjusted from 1 101 80-1 101 40, CF tightened from 25-23 and ratio from 12-10. (7) Hypertension: Plan: - Continue amlodipine, atenolol, clonidine. (8) Anemia: Plan: - Secondary to CKD, Hgb 12.1, normocytic. - Continue to monitor. 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 Plan - Admit to medicine with telemetry. - SCDs, Lovenox for VTE PPx. - DNR/DNI. Admission and Anticipated Discharge Date Admission Date: April 19, 2022 Subjective Hypoxia is improving, patient large bowel movement, BMP CBC tomorrow, system glucose not control Physical Exam Physical Exam: General: A&Ox3. NAD. Cooperative. Skin is warm, dry without rash/urticaria or angioedema HEENT: Atraumatic, normocephalic. Vision/hearing grossly intact. Pulm: Diminished, scattered expiratory wheezes, trace crackles in the bases no increase in work of breathing. No respiratory distress. Cardiac: RRR, -mrg. Radial pulses intact and symmetrical. Abdominal: Nontender, nondistended, soft. BS present. Extremities: S/p right BKA, surgical site well-healed. Left lower extremity intact, no edema, sensation in ankle dorsi/plantar flexion intact. Moving upper extremities equally, printing supervisor strength 5/5 Results & Data Results & Data ([facility]) Vital Signs (Past 12 Hours) Vital Signs Temp Pulse Pulse Resp BP Pulse Ox O2 Del Method 04/21/22 16:35 36.9 C 73 16 115/63 96 Room Air 04/21/22 16:03 73 20 98 Room Air 04/21/22 15:56 75 04/21/22 11:51 36.5 C 75 16 128/66 99 Room Air 04/21/22 11:34 Room Air PG Care Time/CCT Total # of Minutes Spent Total Time Spent with Patient: Total time spent is greater than 50% in coordination of care (as documented) at patient's floor/unit and/or counseling patient: Coding Level of Care Code 86488 Subseq Hosp Care Lvl 2 Diagnoses Pneumonia J18.9 Multiple drug allergies Z88.9 Influenza A J10.1 First degree atrioventricular block I44.0 Urethral stricture N35.919 Diabetes mellitus E11.9 Hypertension I10 Anemia D64.9 Morris esophagus K22.70
[2022-04-22] MEDS: PANTOprazole 40 MG TAB PO SCH (07:56)
[2022-04-22] MEDS: methylPREDNISolone 60 MG in SYRINGE 0 ML IV SCH (07:56)
[2022-04-22] MEDS: ATENOLOL 50 MG TABLET PO SCH (07:56)
[2022-04-22] MEDS: amLODIPine BESYLATE 5 MG TAB PO SCH (07:56)
[2022-04-22] MEDS: CHOLECALCIFEROL 1,000 UNITS 25 MCG TAB PO SCH (07:56)
[2022-04-22] MEDS: guaiFENesin/DEXTROM SYRUP 200MG/20MG 10ML UDC PO PRN (07:56)
[2022-04-22] MEDS: POLYETHYLENE (MIRALAX) 17 GM PACK PO SCH (07:57)
[2022-04-22] MEDS: DOXYCYCLINE HYCLATE 100 MG in DEXTROSE 5% 100 ML IV SCH ×2 (08:04→21:07)
[2022-04-22] MEDS: INSULIN ASPART PER UNIT SC SCH ×4 (08:04→21:06)
[2022-04-22] MEDS: LANTUS PER UNIT CHARGE SQ SCH ×2 (08:05→21:06)
[2022-04-22 08:08] LABS: Hematocrit (blood only) 34.8 % (40.1-51.0); Hemoglobin 11.6 g/dl (14.0-18.0); Mean Corpuscular Hemoglobin 26.8 pg (25.0-34.0); Mean Corpuscular Hgb Conc 33.3 g/dL (32.0-36.0); Mean Corpuscular Volume 80.4 fL (80.0-100.0); Mean Platelet Volume 9.4 fL (9.4-12.4); Platelet Count 466 K/uL (130-400); RDW Coefficient of Variation 14.1 % (11.5-14.5); RDW Standard Deviation 41.6 fL (36.4-46.3); Red Blood Count 4.33 M/uL (4.63-6.08); White Blood Count 10.44 K/ul (4.8-10.8)
[2022-04-22 08:54] LABS: BUN Creatinine Ratio 35.7 (10-20); Est GFR (African American) 52.1 ml/min; Potassium 4.2 mmol/L (3.5-5.1)
[2022-04-22] MEDS: ENOXAPARIN INJ 40 MG/0.4 ML SYR SQ SCH (17:27)
[2022-04-22] MEDS: cefTRIAXone SODIUM 2,000 MG in DEXTROSE 5% 50 ML IV SCH (17:27)
--- NOTE | 2022-04-22 18:35 | Hospitalist Progress Note ---
Date of Service April 22, 2022 Assessment & Plan (1) Pneumonia: Plan: - WBC 15 with left shift, procalcitonin and lactate 0.9. - CXR: Mild lower lung interstitial thickening and minimal bibasilar opacities. The findings are probably chronic or represent atelectasis however an infectious process could appear similar. - With URI complaints in the setting of recent influenza A, suspect superimposed bacterial pneumonia. -Leukocytosis downtrending, patient appears to be clinically improving with Rocephin/Doxy IV - PT/OT to evaluate patient while admitted, patient may require placement. Discontinue fluids Given extensive allergy history and suspicion for soy/milk allergy likely with medication fillers rather than medication active ingredients discussed trial of p.o. with pharmacy and patient family. Patient has tolerated Rocephin/Doxy IV well, will convert to cefdinir/Doxy p.o. Will give cefdinir 300 mg at 2 PM, then doxycycline 100 mg at 9 PM and continue twice daily dosing. Stagger antibiotic dose to evaluate if patient has an allergic reaction to one or the other. If allergic reaction develops, epi for anaphylaxis and IV Benadryl is readiness paraprofessional. Patient should be closely monitored following antibiotic delivery. If no reaction, will fill home pack for 5-7-day course for patient is seen manufacture cannot be guaranteed from outside pharmacy. If patient does have a reaction, then will likely need further treatments as IV and can consider ultrasound- guided placement at that time. 04/21 Hypoxia is improving Continue current treatment with Doxy and Rocephin Possible discharge tomorrow PT OT CBC tomorrow (2) Multiple drug allergies: Plan: - He has an extensive list of medication/antibiotic allergies however stats that he only has reactions (hives) to oral formulations and has tolerate IV versions well without adverse reactions. -See antibiotic plan as noted Follow-up with allergy/immunology and Dr. Siddiqui as outpatient. (3) Influenza A: Plan: - Diagnosed two weeks ago with progression of symptoms despite hospitalization at [place] (d/c 04/17), now superimposed pneumonia. - COVID/flu/RSV negative today. - Treatment of community-acquired pneumonia as noted (4) First degree atrioventricular block: Plan: - History of, remains on clonidine and atenolol, per cardiology note okay to continue these as he does not have complete heart block or show symptoms of the bradycardia. (5) Urethral stricture: Plan: - History of prostate cancer, s/p prostatectomy and radiation therapy in 2010. - With urethral stricture and chronic issues with retention, now has suprapubic catheter placed. (6) Diabetes mellitus: Plan: - Continue insulin therapy basal/bolus. - A1c July 2021: 6.7% - DM diet. (7) Hypertension: Plan: - Continue amlodipine, atenolol, clonidine. (8) Anemia: Plan: - Secondary to CKD, Hgb 12.1, normocytic. - Continue to monitor. 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 Plan - Admit to medicine with telemetry. - SCDs, Lovenox for VTE PPx. - DNR/DNI. Admission and Anticipated Discharge Date Admission Date: April 19, 2022 Subjective Doing better possible discharge tomorrow Physical Exam Physical Exam: General: A&Ox3. NAD. Cooperative. Skin is warm, dry without rash/urticaria or angioedema HEENT: Atraumatic, normocephalic. Vision/hearing grossly intact. Pulm: Diminished, scattered expiratory wheezes, trace crackles in the bases no increase in work of breathing. No respiratory distress. Cardiac: RRR, -mrg. Radial pulses intact and symmetrical. Abdominal: Nontender, nondistended, soft. BS present. Extremities: S/p right BKA, surgical site well-healed. Left lower extremity intact, no edema, sensation in ankle dorsi/plantar flexion intact. Moving upper extremities equally, sleeping car porter strength 5/5 Results & Data Results & Data ([facility]) Vital Signs (Past 12 Hours) Vital Signs Temp Pulse Pulse Resp BP BP Pulse Ox 04/22/22 15:38 37.0 C 68 18 128/73 94 04/22/22 11:36 36.4 C L 63 18 122/73 94 04/22/22 10:08 04/22/22 09:52 04/22/22 08:17 36.7 C 59 L 20 136/59 L 95 04/22/22 08:17 36.7 C 04/22/22 07:29 60 Pulse Ox O2 Del Method O2 Del Method 04/22/22 15:38 Room Air 04/22/22 11:36 Room Air 04/22/22 10:08 Room Air 04/22/22 09:52 98 Room Air 04/22/22 08:17 Room Air 04/22/22 08:17 04/22/22 07:29 PG Care Time/CCT Total # of Minutes Spent Total Time Spent with Patient: Total time spent is greater than 50% in coordination of care (as documented) at patient's floor/unit and/or counseling patient: Coding Level of Care Code 53476 Subseq Hosp Care Lvl 2 Diagnoses Pneumonia J18.9 Multiple drug allergies Z88.9 Influenza A J10.1 First degree atrioventricular block I44.0 Urethral stricture N35.919 Diabetes mellitus E11.9 Hypertension I10 Anemia D64.9 Morris esophagus K22.70
[2022-04-22] MEDS ORDERED: MELATONIN 3 MG TAB PO PRN (21:53)
[2022-04-23] MEDS: LANTUS PER UNIT CHARGE SQ SCH (08:18)
[2022-04-23] MEDS: POLYETHYLENE (MIRALAX) 17 GM PACK PO SCH (08:19)
[2022-04-23] MEDS: PANTOprazole 40 MG TAB PO SCH (08:19)
[2022-04-23] MEDS: INSULIN ASPART PER UNIT SC SCH ×2 (08:19→12:30)
[2022-04-23] MEDS: methylPREDNISolone 60 MG in SYRINGE 0 ML IV SCH (08:19)
[2022-04-23] MEDS: ATENOLOL 50 MG TABLET PO SCH (08:20)
[2022-04-23] MEDS: amLODIPine BESYLATE 5 MG TAB PO SCH (08:20)
[2022-04-23] MEDS: CHOLECALCIFEROL 1,000 UNITS 25 MCG TAB PO SCH (08:20)
[2022-04-23] MEDS: DOXYCYCLINE HYCLATE 100 MG in DEXTROSE 5% 100 ML IV SCH (08:23)
[2022-04-23] MEDS: cefTRIAXone SODIUM 2,000 MG in DEXTROSE 5% 50 ML IV SCH (15:59)
--- NOTE | 2022-04-24 20:20 | Discharge Summary ---
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 Tells me he tested positive for the flu 2 weeks ago and has been hospitalized off at [facility], most recently discharged on 04/17. Since discharge he continues to have a productive cough and feels short of breath at home, and is becoming generally weak as he has not been able to eat or drink due to lack of appetite. He is fatigued. Unsure if he had any fevers at home visit occasional chills. On presentation his vital signs are within normal limits and stable, he is maintaining SPO2 >92% on room air. Labs notable for a white count of 15 with left shift, chronic, stable anemia with Hgb 12.1 today. CMP is pending, Pro-Aldo, lactate pending. CXR shows mild lower lung interstitial thickening and minimal bibasilar opacities either representing chronic atelectasis or infectious process. Principal Diagnosis Pneumonia Discharge Exam General: A&Ox3. NAD. Cooperative. Skin is warm, dry without rash/urticaria or angioedema HEENT: Atraumatic, normocephalic. Vision/hearing grossly intact. Pulm: Diminished, scattered expiratory wheezes, trace crackles in the bases no increase in work of breathing. No respiratory distress. Cardiac: RRR, -mrg. Radial pulses intact and symmetrical. Abdominal: Nontender, nondistended, soft. BS present. Extremities: S/p right BKA, surgical site well-healed. Left lower extremity intact, no edema, sensation in ankle dorsi/plantar flexion intact. 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 5/5 Discharge Data Allergies Allergy/AdvReac Type Severity Reaction Status Date / Time cefdinir Allergy Severe Hives Verified 04/20/22 15:24 lisinopril Allergy Severe Anaphylaxis Verified 04/19/22 20:38 milk Allergy Severe THROAT Verified 04/19/22 20:38 SWELLS SHUT IF DRINK "TOO MUCH" atorvastatin [From Lipitor] Allergy Intermediate ITCHING/HIV Verified 04/19/22 20:38 ES cephalexin [From Keflex] Allergy Intermediate Hives Verified 04/19/22 20:38 ciprofloxacin [From Cipro] Allergy Intermediate hives Verified 04/19/22 20:38 itching clindamycin Allergy Intermediate Hives Verified 04/19/22 20:38 erythromycin base Allergy Intermediate Anaphylaxis Verified 04/19/22 20:38 ezetimibe [From Zetia] Allergy Intermediate ITHCING/HIV Verified 04/19/22 20:38 ES fluconazole [From Diflucan] Allergy Intermediate Hives Verified 04/19/22 20:38 garlic Allergy Intermediate ITCHING Verified 04/19/22 20:38 glipizide Allergy Intermediate Hives Verified 04/19/22 20:38 orange Allergy Intermediate Hives Verified 04/19/22 20:38 peanut Allergy Intermediate Hives Verified 04/19/22 20:38 Penicillins Allergy Intermediate ITCHING/HIV Verified 04/19/22 20:38 ES rofecoxib Allergy Intermediate Hives Verified 04/19/22 20:38 soy Allergy Intermediate ITCHING Verified 04/19/22 20:38 diphenhydramine Allergy Mild itch and Verified 04/19/22 20:38 [From Benadryl] hives hydrocodone Allergy Mild Hives Verified 04/19/22 20:38 chlorophyllin [From Panafil] Allergy Unknown Unknown Verified 04/19/22 20:38 ofloxacin [From Floxin] Allergy Unknown Unknown Verified 04/19/22 20:38 papain [From Panafil] Allergy Unknown Unknown Verified 04/19/22 20:38 pepper (genus Capsicum) Allergy Unknown Unknown Verified 04/22/22 15:18 pravastatin [From Pravachol] Allergy Unknown Unknown Verified 04/19/22 20:38 Quinolones Allergy Unknown Unknown Verified 04/19/22 20:38 sulfamethoxazole Allergy Unknown Unknown Verified 04/19/22 20:38 [From Bactrim] trimethoprim [From Bactrim] Allergy Unknown Unknown Verified 04/19/22 20:38 urea [From Panafil] Allergy Unknown Unknown Verified 04/19/22 20:38 oxycodone AdvReac Severe nausea/vomi Verified 04/19/22 20:38 ting propoxyphene AdvReac Unknown Unknown Verified 04/19/22 20:38 [From Darvocet-N] Consultations 04/19/22 13:11 ED Decision to Admit Stat Hospital Course (1) Pneumonia: - WBC 15 with left shift, procalcitonin and lactate 0.9. - CXR: Mild lower lung interstitial thickening and minimal bibasilar opacities. The findings are probably chronic or represent atelectasis however an infectious process could appear similar. - With URI complaints in the setting of recent influenza A, suspect superimposed bacterial pneumonia. -Leukocytosis downtrending, patient appears to be clinically improving with Rocephin/Doxy IV - PT/OT to evaluate patient while admitted, patient may require placement. Discontinue fluids Given extensive allergy history and suspicion for soy/milk allergy likely with medication fillers rather than medication active ingredients discussed trial of p.o. with pharmacy and patient family. Patient has tolerated Rocephin/Doxy IV well, will convert to cefdinir/Doxy p.o. Will give cefdinir 300 mg at 2 PM, then doxycycline 100 mg at 9 PM and continue twice daily dosing. Stagger antibiotic dose to evaluate if patient has an allergic reaction to one or the other. 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 Patient should be closely monitored following antibiotic delivery. If no reaction, will fill home pack for 5-7-day course for patient is seen manufacture cannot be guaranteed from outside pharmacy. If patient does have a reaction, then will likely need further treatments as IV and can consider ultrasound- guided placement at that time. 04/21 Hypoxia is improving Continue current treatment with Doxy and Rocephin Possible discharge tomorrow PT OT CBC tomorrow 04/23 complete the 4 day treatment with IV with Doxy and Rocephin (2) Multiple drug allergies: - He has an extensive list of medication/antibiotic allergies however stats that he only has reactions (hives) to oral formulations and has tolerate IV versions well without adverse reactions. -See antibiotic plan as noted Follow-up with allergy/immunology and Dr. Siddiqui as outpatient. (3) Influenza A: - Diagnosed two weeks ago with progression of symptoms despite hospitalization at [facility] (d/c 04/17), now superimposed pneumonia. - COVID/flu/RSV negative today. - Treatment of community-acquired pneumonia as noted (4) First degree atrioventricular block: - History of, remains on clonidine and atenolol, per cardiology note okay to continue these as he does not have complete heart block or show symptoms of the bradycardia. (5) Urethral stricture: - History of prostate cancer, s/p prostatectomy and radiation therapy in 2010. - With urethral stricture and chronic issues with retention, now has suprapubic catheter placed. (6) Diabetes mellitus: - Continue insulin therapy basal/bolus. - A1c July 2021: 6.7% - DM diet. (7) Hypertension: - Continue amlodipine, atenolol, clonidine. (8) Anemia: - Secondary to CKD, Hgb 12.1, normocytic. - Continue to monitor. 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 Plan - Admit to medicine with telemetry. - SCDs, Lovenox for VTE PPx. - DNR/DNI. Total Time Total Time Spent Total Time Spent (In Minutes): 45 mins Discharge Plan Discharge Items Patient Disposition: Home - Home Health Services Reason For Visit: PNEUMONIA Discharge Diagnosis: Pneumonia Activity: Resume your previous activity Lifting: Gradually increase as tolerated Non-emergency contact: Hospitalist Call non-emergency contact if: you have any medication questions Follow-up/Referrals: Mitchell Sotomayor MD [Primary Care Provider] - Diet: Heart Healthy Addtl Attending Provider Instructions: please Pending Studies at Discharge: No Stand-Alone Forms: My [facility] [employer], Smoking Cessation Medications and DC Order Prescriptions: New prednisone 20 mg tablet 20 mg PO DAILY Qty: 12 0RF Rx Instructions: 40 mg for 4 days then 20 mg for 4 days then stop Robitussin Cough-Chest Taye DM 5-50 mg/5 mL liquid 20 ml PO Q4H PRN (Reason: cough) Qty: 118 0RF Continued terbinafine HCl 1 % Cream 1 applic TOPICAL BID Rx Instructions: for 14 days atenolol 100 mg tablet 100 mg PO DAILY clotrimazole-betamethasone 1-0.05 % lotion 1 applic TOPICAL BID PRN (Reason: flare ups) cyanocobalamin (vitamin B-12) [Vitamin B-12] 1,000 mcg Tablet 1,000 mcg PO DAILY amlodipine 5 mg tablet 5 mg PO DAILY triamcinolone acetonide 0.1 % ointment 1 applic TOPICAL BID PRN (Reason: ..) nystatin 100,000 unit/gram cream 1 applic TOPICAL BID omeprazole 20 mg capsule,delayed release(DR/EC) 20 mg PO DAILY multivitamin,tx-minerals Tablet 1 tab PO DAILY insulin aspart U-100 [Novolog Flexpen U-100 Insulin] 100 unit/mL (3 mL) insulin pen 5 unit SUBCUT HS solifenacin 10 mg tablet 10 mg PO DAILY insulin glargine [Basaglar KwikPen U-100 Insulin] 100 unit/mL (3 mL) insulin pen 30 unit SUBCUT QAM Movantik 12.5 mg tablet 12.5 mg PO QAM Gemtesa 75 mg tablet 75 mg PO DAILY Robitussin Dm 20mg-200mg/20ml 10 ml PO Q4 Qty: 1 0RF Discontinued fosfomycin tromethamine [Monurol] 3 gram Packet 1 packet PO DIRECTED Discharge Orders: Discharge Order (Routine); Ordered 04/23/22 Ordered By: Oumar Ramirez Admission Data Admit Date/Time: 04/19/22 13:52 Attending Provider: Oumar Ramirez Admit Provider: Niall Mccarty Primary Care Provider: Mitchell Sotomayor Other Providers: Niall Mccarty Other Interventions: Discharge Summary Assessment (RN) Last Done: 04/23/22 17:33 Coding Level of Care Code D/C DAY MANAGEMENT >30 MINS Diagnoses Pneumonia J18.9 Multiple drug allergies Z88.9 Influenza A J10.1 First degree atrioventricular block I44.0 Urethral stricture N35.919 Diabetes mellitus E11.9 Hypertension I10 Anemia D64.9 Morris esophagus K22.70
== END 2022-04-23 18:22 | disposition home health service (06) | DRG 195 ==
LOC: ED 11:25 → SUATTDRO 13:52 → EDINP 13:52 → 2N 04-20 17:30